=== PATIENT | female | born 1940 | race Asian ===

== ENCOUNTER 2020-03-04 17:53 | Inpatient (IN) | payer MEDICARE, OTHER ==
[~2020-03-04] VITALS: Ht 162.6 cm; Wt 53.1 kg
[2020-03-04 20:00] VITALS: BP 105/60
--- NOTE | 2020-03-04 20:00 | NUR ---
NURSE NOTES: Admitted patient to room 219-2 that was transferred from [facility]. Patient is a resident from [facility]. Patient is awake, alert and oriented x 0, non verbal. potline monitor is in placed, shows sinus tachycardia. Patient has a peg tube receiving nutrient pulmonary 1.5 formula @ 35 cc / hour x 20 hours in the nursing facility, but at the moment nothing is running, but RN checked placement and patency. Patient is connected to nasal cannula @ 3Lpm, saturating 99%. Patient has pressure ulcer on sacral region unsteagable and DTI of both heals. Safety measures are in placed. Bed in low and locked position, bed alarm is on, side rails up x 2. Will call Dr. Mcgowan for admission orders.
--- NOTE | 2020-03-04 20:50 | NUR ---
NURSE NOTES: Called Dr. Mcgowan and left a message to inform about the his new patient, awaiting for call back.
--- NOTE | 2020-03-04 21:20 | NUR ---
NURSE NOTES: Spoke with Dr. Latif, and gave vitals and assessment report. Dr. Latif says he will put the orders in for this patient. Will follow-up.
[2020-03-05] VITALS: BP 113/64
[2020-03-05 04:00] VITALS: BP 125/68
[2020-03-05] MEDS ORDERED: Guaifenesin/DM 10ml syrup ORAL PRN (07:15)
[2020-03-05] MEDS ORDERED: Acetaminophen 650mg/20.3ml GT PRN (07:15)
[2020-03-05 08:00] VITALS: BP 125/68
--- NOTE | 2020-03-05 10:00 | NUR ---
NURSE NOTES: PT HAS CONGESTION , SUCTIONED PT NASOTRACHEAL MODERATE OUTPUT WHITE SPUTUM, TOLERATED WELL, NO SOB. NO DISTRESS. GT HELD FOR NOW. HOB ELEVATED. WILL MONITOR. CALL LIGHT WITHIN REACH.
[2020-03-05] MEDS: Ascorbic Acid 500mg tab GT SCH (10:32)
[2020-03-05] MEDS: Magnesium Oxide 400mg tab ORAL SCH (10:32)
[2020-03-05 10:59] LABS: HEMATOCRIT 31.8 % (37.0-47.0); HEMOGLOBIN 11.1 G/DL (12.0-16.0); MEAN CORPUSCULAR VOLUME 89 FL (80-99); PLATELET COUNT 227 K/UL (150-450); RED BLOOD COUNT 3.56 M/UL (4.20-5.40); RED CELL DISTRIBUTION WIDTH 12.5 % (11.6-14.8); WHITE BLOOD COUNT 16.8 K/UL (4.8-10.8)
--- NOTE | 2020-03-05 11:18 | NUR ---
NURSE NOTES:WOUND CARE NOTES:Pt presented on admission with multiple pressure injuries. Non-Blanching erythema without fluctuance or elevation in skin temp noted to R and L elbows. Open DTPI noted to Sacrum,R and L gluteal cheeks(L)10cm x (W)11.4cm. Base of wound is maroon with multiple wounds that are viable.Small purple area that is indurated at sacrococcygeal area(L)2.1cm x (W)1cm.[place]lton epithelial borders that are adherent to base of wound. R and L heels are both boggy with non-blanching erythema. NOn-blanching erythema without induration or fluctuance noted to R and L lateral Malleoli. Tx.Plan: Cleanse wound Buttocks with Saline. Apply TheraHoney. Apply Moisture Barrier Paste periwound. Cover with Optifoam drsg. Change Daily and prn. Apply Cavilon Skin Barrier to both heels and Malleoli Both feet. Cover each area with Optifoam drsgs. Change every 7 days and prn. Apply Cavilon Skin Barrier to both elbows. Cover each elbow with Optifoam drsgs. Change every 7 days and prn. Apply Cavilon Skin Barrier to both hips/trochanteric areas.Cov er each area with Optifoam drsg. Change every 7 days and prn. Reposition at least every 2hours or as tolerated. Off-load heels with Pillow.
[2020-03-05 11:31] LABS: ALANINE AMINOTRANSFERASE 31 U/L (12-78); ALBUMIN 2.5 G/DL (3.4-5.0); ALBUMIN/GLOBULIN RATIO 0.6 (1.0-2.7); ALKALINE PHOSPHATASE 71 U/L (46-116); ANION GAP 9 mmol/L (5-15); ASPARTATE AMINO TRANSFERASE 22 U/L (15-37); BILIRUBIN,TOTAL 0.6 MG/DL (0.2-1.0); BLOOD UREA NITROGEN 10 mg/dL (7-18); CALCIUM 8.7 MG/DL (8.5-10.1); CARBON DIOXIDE 29 MMOL/L (21-32); CHLORIDE 113 MMOL/L (98-107); CREATININE 0.3 MG/DL (0.55-1.30); POTASSIUM 3.1 MMOL/L (3.5-5.1); SODIUM 150 MMOL/L (136-145)
[2020-03-05 12:00] VITALS: BP 148/68
[2020-03-05] MEDS ORDERED: Vancomycin 1gm/D5W 275ml IVPB ONE ×2 (13:00)
--- NOTE | 2020-03-05 13:00 | NUR ---
NURSE NOTES: PT AWAKE ALERT, NO SOB. SACRAL INTACT W SKIN DARK BROWN DISCOLORATION, ORTEGA PATENT AND INTACT W YELLOW URINE Addendum: 03/05/20 at 1340 by AVERY HERNANDEZ RN wrong patient
--- NOTE | 2020-03-05 13:10 | NUR ---
HAND-OFF: Report given to DUAEN ZAVALA.
[2020-03-05] MEDS: Zoysn 3.37gm in NS 100ML IVPB SCH ×2 (13:15→21:50)
[2020-03-05] MEDS: Heparin 5000 units/ml inj SUBQ SCH ×2 (13:15→21:54)
[2020-03-05] MEDS ORDERED: Zosyn 2.25gm inj IV SCH (14:00)
[2020-03-05 16:00] VITALS: BP 125/66
--- NOTE | 2020-03-05 16:59 | NUR ---
CASE MANAGEMENT: REVIEW 80 YEAR OLD FEMALE BIBA TO [facility] LATER TRANSFERRED TO [facility] CC: FEVER . SOB SI: PNA T 98.4 HR 98 RR 21 BP 105/60 SAT 99% ROOM AIR WBC 16.8 H/H 11.1/31.8 NA 150 K+ 3.1 IS: VANCOMYCIN IV X1 G-TUBE PATIENT ADMITTED TO TELEMETRY UNIT 03/04/2020 DCP: PATIENT IS FROM [facility]
--- NOTE | 2020-03-05 19:30 | NUR ---
NURSE NOTES: Received pt and report from SALLY Rg. Observed pt resting in bed with both eyes closed; arousable to voice. Pt is A/Ox0, nonverbal. court monitor is in placed; pt is NSR. IV site intact, asymptomatic, and patent; running D5W @50cc/hr. Pt has a Cornelius in placed for retention. Pt is on G-tube feeding of Jevity 1.2 @30cc/hr, continuous. Aspiration precaution noted; HOB at 30 degrees, suction at bedside. Bed is in the lowest position and locked. Call light and bedside table is within reach. No signs/symptoms of acute distress note at this time. Will continue plan of care.
[2020-03-05 20:00] VITALS: BP 108/59
--- NOTE | 2020-03-05 21:30 | History and Physical Report ---
DATE OF ADMISSION: 03/04/2020 CHIEF COMPLAINT: Aspiration pneumonia. HISTORY OF PRESENT ILLNESS: Patient is an unfortunate 80-year-old female. She has a prior history of aspiration pneumonia, dysphagia status post G-tube placement, hypertension. She has a history of progressive supranuclear palsy. She was transferred from a long term facility with complaints of cough and congestion. She has been congested for several days. She has been started on oral antibiotic therapy as well as breathing treatments, but her symptoms progressed. She was initially transferred to [facility]. There, she was diagnosed with aspiration pneumonia. She was initially on high-flow oxygen, but this was later weaned down and she is now transferred here for continued care. Patient is nonverbal at baseline. She does open her eyes, but does not really follow commands. PAST MEDICAL HISTORY: As above. PAST SURGICAL HISTORY: Includes a history of a G-tube. CURRENT MEDICATIONS: Reconciled and reviewed. FAMILY HISTORY: Noncontributory. SOCIAL HISTORY: There is no known history of tobacco, ethanol, or drugs. REVIEW OF SYSTEMS: Unobtainable as patient is nonverbal at baseline. PHYSICAL EXAMINATION: VITAL SIGNS: Temperature 99, pulse 84, respirations 21, blood pressure 125/68. GENERAL: Patient is a well-developed female, in no apparent distress. She is nonverbal at baseline. HEENT: Her pupils are equal, round, reactive to light. Sclerae are anicteric. Oropharynx is clear. Mucous members are moist. NECK: Supple. There is no jugular venous distention. HEART: Regular rate and rhythm. No murmurs, rubs, or gallops. LUNGS: Significant for scattered rhonchi and rales. ABDOMEN: Soft, nontender, nondistended. EXTREMITIES: Without clubbing, cyanosis, or edema. NEUROLOGIC: Patient is essentially quadriplegic. Does not follow commands. Patient opens her eyes. LABORATORY DATA: Sodium 150, potassium 3.1, chloride 113, BUN 10, creatinine 0.3. White count 17, hemoglobin 11. Chest x-ray at [place] showed pneumonia. ASSESSMENT: This is an unfortunate 80-year-old female with a history of dementia, progressive supranuclear palsy, dysphagia status post G-tube who was transferred from a long term facility with complaints of cough, congestion, and tachycardia. She was diagnosed with aspiration pneumonia and is now admitted for further evaluation. PROBLEM LIST: 1. Aspiration pneumonia. 2. SVT. 3. Hypertension. 4. Supranuclear palsy. 5. Dysphagia status post G-tube. 6. Hypernatremia. 7. Hypokalemia. 8. Toxic metabolic encephalopathy. PLAN: IV antibiotics. Followup chest x-ray. Follow up cultures. Hypotonic fluids. G-tube feeds. Monitor residuals. Replace potassium. Continue respiratory treatments and pulmonary toilet. Plan of care was discussed with patient's daughterKimberlee. Rick Mcgowan M.D. DR: RAMÓN JOB#: [id number] CC:
[2020-03-06] VITALS: BP 112/78
[2020-03-06 04:00] VITALS: BP 116/65
[2020-03-06] MEDS: Zoysn 3.37gm in NS 100ML IVPB SCH ×3 (05:29→22:00)
[2020-03-06] MEDS: Heparin 5000 units/ml inj SUBQ SCH ×3 (05:33→22:00)
[2020-03-06 07:00] LABS: BASOPHILS % (AUTO) 0.7 % (0.0-2.0); EOSINOPHILS % (AUTO) 0.9 % (0.0-3.0); HEMATOCRIT 31.1 % (37.0-47.0); HEMOGLOBIN 10.5 G/DL (12.0-16.0); MEAN CORPUSCULAR VOLUME 91 FL (80-99); MONOCYTES % (AUTO) 3.7 % (1.0-10.0); NEUTROPHILS % (AUTO) 82.7 % (45.0-75.0); PLATELET COUNT 218 K/UL (150-450); RED BLOOD COUNT 3.41 M/UL (4.20-5.40); RED CELL DISTRIBUTION WIDTH 12.4 % (11.6-14.8); WHITE BLOOD COUNT 11.1 K/UL (4.8-10.8)
[2020-03-06 07:27] LABS: ALANINE AMINOTRANSFERASE 22 U/L (12-78); ALBUMIN 2.3 G/DL (3.4-5.0); ALBUMIN/GLOBULIN RATIO 0.6 (1.0-2.7); ALKALINE PHOSPHATASE 71 U/L (46-116); ANION GAP 7 mmol/L (5-15); ASPARTATE AMINO TRANSFERASE 20 U/L (15-37); BILIRUBIN,TOTAL 0.4 MG/DL (0.2-1.0); BLOOD UREA NITROGEN 10 mg/dL (7-18); CALCIUM 8.8 MG/DL (8.5-10.1); CARBON DIOXIDE 28 MMOL/L (21-32); CHLORIDE 113 MMOL/L (98-107); CREATININE 0.4 MG/DL (0.55-1.30); POTASSIUM 3.5 MMOL/L (3.5-5.1); SODIUM 148 MMOL/L (136-145)
[2020-03-06] MEDS ORDERED: Albuterol/Ipratropium 3ml neb HHN PRN (07:30)
--- NOTE | 2020-03-06 07:45 | Progress Note ---
DATE: 03/05/2020 CARDIOLOGY PROGRESS NOTE SUBJECTIVE: The patient is poorly interactive, remains congested on IV fluids. PHYSICAL EXAMINATION: VITAL SIGNS: Blood pressure 125/66, pulse 63, respiratory rate 18, afebrile, oxygen saturation on 2 liters 99%. LUNGS: Bilateral breath sounds with rhonchi. HEART: Regular rate and rhythm. Normal S1, S2 with a fourth heart sound. ABDOMEN: Soft. G-tube intact. EXTREMITIES: No edema. LABORATORY AND DIAGNOSTIC DATA: White count 16.8, hemoglobin 11.1. Sodium 150, potassium 3.1, chloride 113, bicarb 29, BUN 10, creatinine 0.3. Albumin 2.5. IMPRESSION: 1. Aspiration pneumonia. 2. Acute respiratory insufficiency. 3. Paroxysmal sinus tachycardia. 4. Paroxysmal supraventricular tachyarrhythmia. 5. Hypokalemia. 6. Dehydration. 7. Hypernatremia. 8. Hypertensive heart disease. 9. Supranuclear palsy. 10. Toxic and metabolic encephalopathy. PLAN: 1. Hypotonic IV fluids. 2. Antimicrobials. 3. Respiratory hygiene. 4. Potassium replacement . 5. Check magnesium. 6. Trend natriuretic peptide assay. 7. DVT prophylaxis. 8. Nutrition by feeding tube. Justin Latif M.D. DR: Citlalli JOB#: [id number] CC:
--- NOTE | 2020-03-06 07:55 | NUR ---
NURSE NOTES: pt is awake and on Gtube feeding. assessed pt skin she has sacral wound st. 1 and slightly draining. Cleaned and applied barrier cream and optifoam to area. pt has optifoam on various parts of body for protection. Pt on awake overnight monitor no signs of cardiac or respiratory distress. Bed in lowest position and locked. call light within reach. will continue to monitor 920 reported blood culture to Dr[address] Patel
[2020-03-06 08:00] VITALS: BP 109/58
--- NOTE | 2020-03-06 08:18 | NUR ---
HAND-OFF: Report given to SALLY Dunlap. Plan of care endorsed.
--- NOTE | 2020-03-06 09:45 | Diagnostic Imaging Report ---
Indication: Cough Technique: One view of the chest Comparison: none Findings: Reticular interstitial disease and some dense consolidation is seen at the right lung base. There is dense consolidation in the retrocardiac region. The pleural spaces are clear. The heart size is normal. The aorta is calcified. The upper lungs are clear. A band of atelectasis versus thickening of the minor fissure is seen in the right midlung Impression: Bilateral infiltrates, likely pneumonia. Right midlung atelectasis
[2020-03-06] MEDS: Ascorbic Acid 500mg tab GT SCH (10:44)
[2020-03-06] MEDS: Magnesium Oxide 400mg tab ORAL SCH (10:44)
--- NOTE | 2020-03-06 11:16 | NUR ---
RD ASSESSMENT & RECOMMENDATIONS SEE CARE ACTIVITY FOR COMPLETE ASSESSMENT DAILY ESTIMATED NEEDS: Needs based on Wound, cardiac/ 47kg 25-30 kcals/kg 4581-1966 total kcals 1.25-1.5 g protein/kg 58-70 g total protein 25-30 mL/kg 3146-8931 total fluid mLs NUTRITION DIAGNOSIS: * Swallowing difficulty R/T dysphagia as evidenced by pt is PEG dep. * Increased kcal/prot needs R/T wound healing as evidenced by pt is PEG dep. CURRENT TF:Jevity 1.2 @ 30ml/hr x 24 hrs ENTERAL NUTRITION RECOMMENDATIONS: Jevity 1.2 @ 45ml/hr x 24 hrs to provide 1080ml, 1296kcal, 60g prot, 871ml free water * Increase goal rate to 45ml/hr x 24 hrs to meet 100% est kcal/prot needs * HOB over 30 degrees * Without IVF, water flush of 150ml q 8 hrs ADDITIONAL RECOMMENDATIONS: * Calibrated bedscale wt- w/ added P200 mattress + pump Per SNF: [id number] as of 03/04/20 * Monitor lytes, replete as needed * Wound healing: add Vit C 250mg QD + Kendell 1pkt BID * Monitor BGs w/ TF, need for NISS
--- NOTE | 2020-03-06 11:53 | General Progress Note ---
Assessment/Plan Problem List: (1) Bacteremia ICD Codes: R78.81 - Bacteremia SNOMED: 8825500 (2) Sepsis ICD Codes: A41.9 - Sepsis, unspecified organism SNOMED: 55026056 (3) SVT (supraventricular tachycardia) ICD Codes: I47.1 - Supraventricular tachycardia SNOMED: 4077440 (4) Progressive supranuclear palsy ICD Codes: G23.1 - Progressive supranuclear ophthalmoplegia [Brendan Puente] SNOMED: 250602580 (5) Pneumonia ICD Codes: J18.9 - Pneumonia, unspecified organism SNOMED: 841459579 Status: stable, progressing Assessment/Plan: iv abx follow up cultures gt feeds resp care suctioning monitor labs message left with dtr Subjective ROS Limited/Unobtainable: Yes Constitutional: Reports: malaise, weakness HEENT: Reports: no symptoms Cardiovascular: Reports: no symptoms Respiratory: Reports: cough, shortness of breath, sputum Gastrointestinal/Abdominal: Reports: difficulty swallowing Genitourinary: Reports: no symptoms Neurologic/Psychiatric: Reports: no symptoms Endocrine: Reports: no symptoms Hematologic/Lymphatic: Reports: anemia Allergies: Coded Allergies: NO KNOWN ALLERGIES (Verified Allergy, Unknown, 03/04/20) All Systems: reviewed and negative except above Subjective no events. nonverbal. mild congestion. +blood cultures from [place]. on tube feeds. remains withdrawn and poorly responsive. Objective Last 24 Hour Vital Signs Date Time Temp Pulse Resp B/P (MAP) Pulse Ox O2 Delivery O2 Flow Rate FiO2 03/06/20 08:00 98.4 81 20 109/58 (75) 100 03/06/20 04:00 85 03/06/20 04:00 98.0 85 17 116/65 (82) 98 03/06/20 00:00 94 03/06/20 00:00 97.8 86 19 112/78 (89) 99 03/05/20 21:00 Nasal Cannula 2.0 03/05/20 20:00 98.2 82 17 108/59 (75) 99 03/05/20 20:00 82 03/05/20 16:00 97.0 63 18 125/66 (85) 99 03/05/20 15:44 76 03/05/20 12:00 97.8 66 18 148/68 (94) 99 Intake and Output 03/05/20 03/06/20 19:00 07:00 Intake Total 450 ml Output Total 700 ml 500 ml Balance -250 ml -500 ml Intake Free Water 240 ml Tube Feeding 210 ml Output Urine Total 700 ml 500 ml # Voids 1 Laboratory Tests 03/06/20 06:17: White Blood Count 11.1H, Red Blood Count 3.41L, Hemoglobin 10.5L, Hematocrit 31.1L, Mean Corpuscular Volume 91, Mean Corpuscular Hemoglobin 30.8, Mean Corpuscular Hemoglobin Concent 33.8, Red Cell Distribution Width 12.4, Platelet Count 218, Mean Platelet Volume 6.1L, Neutrophils (%) (Auto) 82.7H, Lymphocytes (%) (Auto) 12.0L, Monocytes (%) (Auto) 3.7, Eosinophils (%) (Auto) 0.9, Basophils (%) (Auto) 0.7, Sodium Level 148H, Potassium Level 3.5, Chloride Level 113H, Carbon Dioxide Level 28, Anion Gap 7, Blood Urea Nitrogen 10, Creatinine 0.4L, Estimat Glomerular Filtration Rate > 60, Glucose Level 137H, Calcium Level 8.8, Magnesium Level 1.9, Total Bilirubin 0.4, Aspartate Amino Transf (AST/SGOT) 20, Alanine Aminotransferase (ALT/SGPT) 22, Alkaline Phosphatase 71, Pro-B-Type Natriuretic Peptide 477H, Total Protein 6.4, Albumin 2.3L, Globulin 4.1, Albumin/Globulin Ratio 0.6L Height (Feet): 5 Height (Inches): 4.00 Weight (Pounds): 117 General Appearance: WD/WN, lethargic, confused EENT: normal ENT inspection Neck: non-tender, normal alignment, supple Cardiovascular: normal peripheral pulses, normal rate Respiratory/Chest: chest wall non-tender, lungs clear, normal breath sounds Abdomen: normal bowel sounds, non tender, soft, no organomegaly Pelvis: normal external exam Edema: no edema noted Arm (L), no edema noted Arm (R), no edema noted Leg (L), no edema noted Leg (R), no edema noted Pedal (L), no edema noted Pedal (R), no edema noted Generalized Neurologic: disoriented, unresponsive, aphasia Rick Mcgowan MD March 06, 2020 11:53
[2020-03-06 12:00] VITALS: BP 134/68
[2020-03-06] MEDS: Vancomycin 500mg/D5W 110ml IVPB SCH ×2 (13:11)
--- NOTE | 2020-03-06 15:57 | Consultation ---
History of Present Illness General Date patient seen: March 06, 2020 Present Illness HPI This is a very unfortunate 80-year-old female multi-medical comorbidities and history of palsy who is a assisted resident care dependent presented to [facility] for evaluation of potential aspiration pneumonia. Abnormal labs. Significant leukocytosis, sepsis. Ill-appearing. Identified to have malnutrition BMI 20 low albumin multiple skin issues to DTI decubitus. Surgery called to evaluate and assist with care and management. Patient seen, patient evaluated, chart reviewed. Patient unable to provide meaningful history. Allergies: Coded Allergies: NO KNOWN ALLERGIES (Verified Allergy, Unknown, 03/04/20) Patient History Limited by: medical condition History Provided By: Medical Record, PMD Healthcare decision maker N Resuscitation status Advanced Directive on File Past Medical/Surgical History Past Medical/Surgical History: (1) Bacteremia (2) SVT (supraventricular tachycardia) (3) Sepsis (4) Pneumonia (5) Progressive supranuclear palsy Physical Exam General Appearance: no apparent distress, lethargic Lines, tubes and drains: peripheral HEENT: mucous membranes moist Neck: normal inspection Respiratory/Chest: no respiratory distress, no accessory muscle use, decreased breath sounds Cardiovascular/Chest: normal peripheral pulses, regularly irregular Abdomen: soft, no organomegaly, no mass, other Extremities: inflammation, slow capillary refill Skin Exam: warm/dry Neurologic: unresponsiveness Last 24 Hour Vital Signs Date Time Temp Pulse Resp B/P (MAP) Pulse Ox O2 Delivery O2 Flow Rate FiO2 03/06/20 08:00 98.4 81 20 109/58 (75) 100 03/06/20 04:00 85 03/06/20 04:00 98.0 85 17 116/65 (82) 98 03/06/20 00:00 94 03/06/20 00:00 97.8 86 19 112/78 (89) 99 03/05/20 21:00 Nasal Cannula 2.0 03/05/20 20:00 98.2 82 17 108/59 (75) 99 03/05/20 20:00 82 03/05/20 16:00 97.0 63 18 125/66 (85) 99 Intake and Output 03/05/20 03/06/20 19:00 07:00 Intake Total 450 ml Output Total 700 ml 500 ml Balance -250 ml -500 ml Intake Free Water 240 ml Tube Feeding 210 ml Output Urine Total 700 ml 500 ml # Voids 1 Laboratory Tests Test 03/06/20 06:17 White Blood Count 11.1 K/UL (4.8-10.8) H Red Blood Count 3.41 M/UL (4.20-5.40) L Hemoglobin 10.5 G/DL (12.0-16.0) L Hematocrit 31.1 % (37.0-47.0) L Mean Corpuscular Volume 91 FL (80-99) Mean Corpuscular Hemoglobin 30.8 PG (27.0-31.0) Mean Corpuscular Hemoglobin Concent 33.8 G/DL (32.0-36.0) Red Cell Distribution Width 12.4 % (11.6-14.8) Platelet Count 218 K/UL (150-450) Mean Platelet Volume 6.1 FL (6.5-10.1) L Neutrophils (%) (Auto) 82.7 % (45.0-75.0) H Lymphocytes (%) (Auto) 12.0 % (20.0-45.0) L Monocytes (%) (Auto) 3.7 % (1.0-10.0) Eosinophils (%) (Auto) 0.9 % (0.0-3.0) Basophils (%) (Auto) 0.7 % (0.0-2.0) Sodium Level 148 MMOL/L (136-145) H Potassium Level 3.5 MMOL/L (3.5-5.1) Chloride Level 113 MMOL/L (98-107) H Carbon Dioxide Level 28 MMOL/L (21-32) Anion Gap 7 mmol/L (5-15) Blood Urea Nitrogen 10 mg/dL (7-18) Creatinine 0.4 MG/DL (0.55-1.30) L Estimat Glomerular Filtration Rate > 60 mL/min (>60) Glucose Level 137 MG/DL (74-106) H Calcium Level 8.8 MG/DL (8.5-10.1) Magnesium Level 1.9 MG/DL (1.8-2.4) Total Bilirubin 0.4 MG/DL (0.2-1.0) Aspartate Amino Transf (AST/SGOT) 20 U/L (15-37) Alanine Aminotransferase (ALT/SGPT) 22 U/L (12-78) Alkaline Phosphatase 71 U/L (46-116) Pro-B-Type Natriuretic Peptide 477 pg/mL (0-125) H Total Protein 6.4 G/DL (6.4-8.2) Albumin 2.3 G/DL (3.4-5.0) L Globulin 4.1 g/dL Albumin/Globulin Ratio 0.6 (1.0-2.7) L Height (Feet): 5 Height (Inches): 4.00 Weight (Pounds): 117 Medications Current Medications Medications (Trade) Dose Ordered Sig/Monik Route PRN Reason Start Time Stop Time Status Last Admin Dose Admin Acetaminophen (Tylenol) 650 mg Q4H PRN GT Mild Pain (Pain Scale 1-3) 03/05/20 07:15 04/04/20 07:14 Albuterol/ Ipratropium (Albuterol/ Ipratropium) 3 ml Q4H PRN HHN Shortness of Breath 03/06/20 07:30 03/11/20 07:29 Ascorbic Acid (Vitamin C) 500 mg DAILY GT 03/05/20 09:00 04/04/20 08:59 03/06/20 10:44 Dextrose 1,000 ml @ 50 mls/hr Q20H IV 03/05/20 15:45 04/04/20 15:44 03/05/20 17:05 Guaifenesin/ Dextromethorphan (Robitussin DM Syrup) 5 ml Q4H PRN ORAL CONGESTION 03/05/20 07:15 06/03/20 07:14 Heparin Sodium (Porcine) (Heparin 5000 units/ml) 5,000 units EVERY 8 HOURS SUBQ 03/05/20 14:00 04/19/20 13:59 03/06/20 13:15 Magnesium Oxide (Mag-Ox 400mg) 200 mg DAILY ORAL 03/05/20 09:00 04/04/20 08:59 03/06/20 10:44 Piperacillin Sod/ Tazobactam Sod 3.375 gm/Sodium Chloride 110 ml @ 27.5 mls/hr EVERY 8 HOURS IVPB 03/05/20 14:00 03/10/20 13:59 03/06/20 15:07 Vancomycin HCl (Vanco rx to dose) 1 ea DAILY PRN MISC Per rx protocol 03/05/20 07:15 04/04/20 07:14 Vancomycin HCl 500 mg/Dextrose 110 ml @ 110 mls/hr Q24H IVPB 03/06/20 13:00 03/11/20 12:59 03/06/20 13:11 Assessment/Plan Problem List: (1) Bacteremia ICD Codes: R78.81 - Bacteremia SNOMED: 2365640 (2) SVT (supraventricular tachycardia) ICD Codes: I47.1 - Supraventricular tachycardia SNOMED: 8965892 (3) Sepsis Assessment & Plan: afebrile, HD stable leukocytosis pna cxr noted large DTI sacrum micro noted UA noted cont abx as per ID trend labs no acute surgical intervention planned ICD Codes: A41.9 - Sepsis, unspecified organism SNOMED: 37374650 (4) Pneumonia Assessment & Plan: Reticular interstitial disease and some dense consolidation is seen at the right lung base. There is dense consolidation in the retrocardiac region. The pleural spaces are clear. The heart size is normal. The aorta is calcified. The upper lungs are clear. A band of atelectasis versus thickening of the minor fissure is seen in the right midlung Impression: Bilateral infiltrates, likely pneumonia. Right midlung atelectasis ICD Codes: J18.9 - Pneumonia, unspecified organism SNOMED: 854502342 (5) Progressive supranuclear palsy ICD Codes: G23.1 - Progressive supranuclear ophthalmoplegia [Efrain-Corona- Cindi] SNOMED: 357854510 (6) Malnutrition Assessment & Plan: DAILY ESTIMATED NEEDS: Needs based on Wound, cardiac/ 47kg 25-30 kcals/kg 1401-1000 total kcals 1.25-1.5 g protein/kg 58-70 g total protein 25-30 mL/kg 2196-7781 total fluid mLs NUTRITION DIAGNOSIS: * Swallowing difficulty R/T dysphagia as evidenced by pt is PEG dep. * Increased kcal/prot needs R/T wound healing as evidenced by pt is PEG dep. CURRENT TF:Jevity 1.2 @ 30ml/hr x 24 hrs ENTERAL NUTRITION RECOMMENDATIONS: Jevity 1.2 @ 45ml/hr x 24 hrs to provide 1080ml, 1296kcal, 60g prot, 871ml free water * Increase goal rate to 45ml/hr x 24 hrs to meet 100% est kcal/prot needs * HOB over 30 degrees * Without IVF, water flush of 150ml q 8 hrs ADDITIONAL RECOMMENDATIONS: * Calibrated bedscale wt- w/ added P200 mattress + pump Per SNF: [id number] as of 03/04/20 * Monitor lytes, replete as needed * Wound healing: add Vit C 250mg QD + Kendell 1pkt BID * Monitor BGs w/ TF, need for NISS ICD Codes: E46 - Unspecified protein-calorie malnutrition SNOMED: 04591628 (7) Deep tissue injury Assessment & Plan: patient noted to have large DTI sacrum on admission, erythema, no drainage, no foul odor, developing deep tissue injury with high risk of breakdown worsening given patients overall condition. noted areas of epidermal skin loss in the superior right and lower left. measurements noted in chart. no signs of active infection Tx Plan: Apply skin protectant to sacral area and buttock, cover with optifoam dressing q3 days and prn saturation off load heels with pillow heel protectors monitor for incontinence and care accordingly turn q2h air loss mattress nutritional optimization will follow with recs thank you ICD Codes: T14.8XXA - Other injury of unspecified body region, initial encounter SNOMED: 370158142 Josh Duff March 06, 2020 15:57
[2020-03-06 16:00] VITALS: BP 120/65
--- NOTE | 2020-03-06 17:59 | Consultation ---
DATE OF CONSULTATION: 03/06/2020 INFECTIOUS DISEASES CONSULTATION CONSULTING PHYSICIAN: Jillian Joaquin MD. REFERRING PHYSICIAN: Rick Mcgowan MD. REASON FOR CONSULTATION: Bacteremia. HISTORY OF PRESENTING ILLNESS: This is a 80-year-old lady with history of aspiration pneumonia, status post G-tube placement, hypertension, supranuclear palsy, who is transferred [place] [facility] facility with cough and congestion. She was in [facility]. She was found to have Staph sepsis and an Infectious Diseases consultation now has been obtained for antibiotics. PAST MEDICAL HISTORY: 1. History of aspiration pneumonia. 2. Dysphagia, status post G-tube placement. 3. Hypertension. 4. Progressive supranuclear palsy. SOCIAL HISTORY: No history of smoking, alcohol, or drug use. FAMILY HISTORY: Unknown. REVIEW OF SYSTEMS: Unable to obtain currently. MEDICATIONS: As an inpatient, she is on IV vancomycin, subcu heparin, Zosyn, magnesium oxide, ascorbic acid, Robitussin, and Tylenol. ALLERGIES: No known drug allergies. PHYSICAL EXAMINATION: VITAL SIGNS: Temperature of 98, T-max of 99.1, pulse of 85, respiratory rate 17, blood pressure 116/65, O2 saturation of 98%. GENERAL: Examination deferred due to COVID-19. LABORATORY AND DIAGNOSTIC DATA: White count 16.8 on 03/05/2020. On 03/06/2020, white count 11.1, hemoglobin 10.5, hematocrit 31.1, MCV 91, platelet count of 218,000; neutrophils of 82%. Sodium 148, potassium 3.5, chloride 113, bicarb 28, BUN 10, creatinine 0.4, glucose 137, calcium 8.8. Total bilirubin 0.4, AST 20, ALT 22, alkaline phosphatase 71, total protein 6.4, albumin 2.3. Chest x-ray is showing bilateral infiltrates likely pneumonia, right mid lung atelectasis. ASSESSMENT: This is a 80-year-old lady with history of hypertension, dysphagia status post G-tube placement, supranuclear palsy, who comes in with cough and congestion and is found to have: 1. Likely aspiration pneumonia. Would like to rule out COVID-19 pneumonia as a possibility. 2. Positive blood cultures with Staph species. 3. Hypertension. 4. Status post G-tube placement. PLAN: 1. Continue IV vancomycin and Zosyn. 2. We will order COVID-19 testing[address] will [address] the patient in isolation. 4. We will order sputum for Gram stain and culture. 5. We will follow up cultures and adjust antibiotics accordingly. I would like to thank, Dr. Mcgowan, for this consultation. Zaiduntsudhakar Joaquin M.D. DR: Nik JOB#: [id number] CC: Rick Mcgowan M.D.
--- NOTE | 2020-03-06 19:35 | NUR ---
HAND-OFF: Report given to Davis/rn, pt in stable condition.
--- NOTE | 2020-03-06 19:40 | NUR ---
NURSE NOTES: Got report from Fabi ZAVALA. Pt in stable condition. No s/s of distress or discomfort noted. Pt resting in bed comfortably. Bed in low and locked position, call light within reach, bedside table within reach. Continue to monitor.
[2020-03-06 20:00] VITALS: BP 130/68
[2020-03-07] VITALS: BP 133/78
--- NOTE | 2020-03-07 00:45 | Progress Note ---
DATE: 03/06/2020 CARDIOLOGY PROGRESS NOTE SUBJECTIVE: The patient is nonverbal at baseline. Appears to have some mild congestion. She has positive blood cultures. She remains on tube feedings. Monitored rhythm, sinus and occasional atrial ectopics. PHYSICAL EXAMINATION: VITAL SIGNS: Blood pressure 109/58, pulse 81, respiratory rate 20, oxygen saturation on 2 liters 99%. LUNGS: Bilateral breath sounds. Rhonchi. HEART: Regular rhythm and rate. Normal S1, S2 with a 1/6 systolic murmur at apex. ABDOMEN: Soft and nontender. G-tube site intact. EXTREMITIES: Trace edema. LABORATORY DATA: White count 11.1, hemoglobin 10.5. Sodium 148, potassium 3.5, bicarb 28, BUN 10, creatinine 0.4. Pro-natriuretic peptide 477. Magnesium 1.9. Albumin 2.3. Chest x-ray today revealed bilateral interstitial infiltrates. IMPRESSION: 1. Sepsis. 2. Bacteremia. 3. Dehydration. 4. Hypernatremia. 5. 6. Aspiration healthcare-acquired pneumonia. 7. Acute on chronic diastolic congestive heart failure. 8. Supraventricular arrhythmias. 9. Paroxysmal sinus tachycardia. 10. Severe protein-calorie malnutrition. 11. Increased risk for endocarditis IMPRESSION: 1. Antimicrobials. 2. Respiratory hygiene. 3. Bronchodilators. 4. Hypotonic IV fluid hydration. 5. DVT prophylaxis. 6. Nutrition by feeding tube. 7. Cardiac monitoring. 8. Trend natriuretic peptide assay. 9. Await cultures. 10. May need to consider further workup for endocarditis. Justin Latif M.D. DR: Citlalli JOB#: [id number] CC:
--- NOTE | 2020-03-07 01:59 | Consultation ---
DATE OF CONSULTATION: 03/04/2020 CARDIOLOGY CONSULTATION CONSULTING PHYSICIAN: Justin Latif MD. REQUESTING PHYSICIAN: Rick Mcgowan MD. REASON FOR CONSULTATION: Tachycardia and arrhythmias. HISTORY OF PRESENT ILLNESS: This is a 80-year-old female. She has a history of progressive supranuclear palsy. She is poorly interactive at baseline with dysphagia and a G-tube. She had some cough, congestion, and respiratory distress and was transferred to the closest emergency room where she was diagnosed with an aspiration pneumonia. She was noted to have tachycardia, supraventricular tachycardia as well. The patient was stabilized and transferred here for continuation of care. PAST MEDICAL HISTORY: Includes supranuclear palsy, dysphagia, G-tube. ALLERGIES: None. MEDICATIONS: Reviewed. FAMILY HISTORY: Not known. SOCIAL HISTORY: No record of smoking, alcohol, or substance abuse. REVIEW OF SYSTEMS: Not obtainable. Records from [facility] were reviewed in detail. PHYSICAL EXAMINATION: IMPRESSION: 1. Aspiration pneumonia. 2. Acute respiratory insufficiency. 3. Acute myocardial ischemia. 4. Dehydration. 5. Hypernatremia. 6. Severe protein-calorie malnutrition. 7. Dysphagia. 8. Paroxysmal supraventricular tachyarrhythmias. 9. Secondary sinus tachycardia. 10. Leukocytosis. PLAN: 1. Antimicrobials. 2. Respiratory hygiene. 3. DVT prophylaxis. 4. Hypotonic IV fluids. 5. Cardiac monitoring. 6. No role for antiarrhythmics presently. 7. Check electrolytes. Justin Latif M.D. : Ranjan JOB#: [id number] CC:
[2020-03-07 04:20] VITALS: BP 130/82
[2020-03-07] MEDS: Zoysn 3.37gm in NS 100ML IVPB SCH ×3 (06:06→21:33)
[2020-03-07] MEDS: Heparin 5000 units/ml inj SUBQ SCH ×3 (06:07→21:35)
--- NOTE | 2020-03-07 07:15 | NUR ---
HAND-OFF: Report given to Fabi ZAVALA.
[2020-03-07 08:00] VITALS: BP 136/73
--- NOTE | 2020-03-07 08:20 | NUR ---
NURSE NOTES: pt in stable condition. platform supervisor on, no signs of cardiac or respiratory distress at this time. pt on Gtube feeding. Bed locked and in lowest position. Call light within reach. Will continue to monitor pt.
[2020-03-07] MEDS: Ascorbic Acid 500mg tab GT SCH (09:04)
[2020-03-07] MEDS: Magnesium Oxide 400mg tab ORAL SCH (09:05)
--- NOTE | 2020-03-07 10:23 | Infectious Diseases Prog Note ---
Assessment/Plan Assessment/Plan antibiotics : vancomycin, zosyn A 1. Likely aspiration pneumonia. Would like to rule out COVID-19 pneumonia as a possibility. 2. Positive blood cultures with Staph species. 3. Hypertension. 4. Status post G-tube placement. 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 Continue IV vancomycin and Zosyn. 2. COVID-19 testing pending 3. continue isolation. 4. will follow up cultures Subjective ROS Limited/Unobtainable: Yes Allergies: Coded Allergies: NO KNOWN ALLERGIES (Verified Allergy, Unknown, 03/04/20) Objective Vital Signs Last 24 Hour Vital Signs Date Time Temp Pulse Resp B/P (MAP) Pulse Ox O2 Delivery O2 Flow Rate FiO2 03/07/20 08:00 97.7 95 18 136/73 (94) 95 03/07/20 04:20 97.7 71 18 130/82 (98) 97 03/07/20 04:00 95 03/07/20 00:00 87 03/07/20 00:00 98.2 74 18 133/78 (96) 96 03/06/20 21:00 Nasal Cannula 2.0 03/06/20 20:00 83 03/06/20 20:00 97.7 80 18 130/68 (88) 95 03/06/20 16:00 98.2 87 20 120/65 (83) 100 03/06/20 16:00 84 03/06/20 12:00 98.1 83 20 134/68 (90) 100 03/06/20 12:00 74 Height (Feet): 5 Height (Inches): 4.00 Weight (Pounds): 117 Microbiology Date/Time Source Procedure Growth Status 03/04/20 22:00 Nasal Nares Left MRSA Culture - Final Staphylococcus Aureus - Mrsa Complete 03/04/20 22:00 Rectum - Final NO CARBAPENEM-RESISTANT ENTEROBACTERI... Complete 03/04/20 22:00 Rectum VRE Culture - Final Enterococcus Faecalis - Vre Complete Current Medications Medications (Trade) Dose Ordered Sig/Monik Route PRN Reason Start Time Stop Time Status Last Admin Dose Admin Acetaminophen (Tylenol) 650 mg Q4H PRN GT Mild Pain (Pain Scale 1-3) 03/05/20 07:15 04/04/20 07:14 Albuterol/ Ipratropium (Albuterol/ Ipratropium) 3 ml Q4H PRN HHN Shortness of Breath 03/06/20 07:30 03/11/20 07:29 Ascorbic Acid (Vitamin C) 250 mg DAILY GT 03/07/20 09:00 04/06/20 08:59 03/07/20 09:04 Dextrose 1,000 ml @ 50 mls/hr Q20H IV 03/05/20 15:45 04/04/20 15:44 03/05/20 17:05 Guaifenesin/ Dextromethorphan (Robitussin DM Syrup) 5 ml Q4H PRN ORAL CONGESTION 03/05/20 07:15 06/03/20 07:14 Heparin Sodium (Porcine) (Heparin 5000 units/ml) 5,000 units EVERY 8 HOURS SUBQ 03/05/20 14:00 04/19/20 13:59 03/07/20 06:07 Magnesium Oxide (Mag-Ox 400mg) 200 mg DAILY ORAL 03/05/20 09:00 04/04/20 08:59 03/07/20 09:05 Piperacillin Sod/ Tazobactam Sod 3.375 gm/Sodium Chloride 110 ml @ 27.5 mls/hr EVERY 8 HOURS IVPB 03/05/20 14:00 03/10/20 13:59 03/07/20 06:06 Vancomycin HCl (Vanco rx to dose) 1 ea DAILY PRN MISC Per rx protocol 03/05/20 07:15 04/04/20 07:14 Vancomycin HCl 500 mg/Dextrose 110 ml @ 110 mls/hr Q24H IVPB 03/06/20 13:00 03/11/20 12:59 03/06/20 13:11 Jillian Joaquin MD March 07, 2020 10:23
[2020-03-07 11:27] LABS: BASOPHILS % (AUTO) 0.7 % (0.0-2.0); EOSINOPHILS % (AUTO) 0.8 % (0.0-3.0); HEMATOCRIT 32.6 % (37.0-47.0); HEMOGLOBIN 10.8 G/DL (12.0-16.0); LYMPHOCYTES % (AUTO) 14.8 % (20.0-45.0); MEAN CORPUSCULAR VOLUME 90 FL (80-99); MONOCYTES % (AUTO) 4.6 % (1.0-10.0); NEUTROPHILS % (AUTO) 79.1 % (45.0-75.0); PLATELET COUNT 246 K/UL (150-450); RED BLOOD COUNT 3.61 M/UL (4.20-5.40); RED CELL DISTRIBUTION WIDTH 12.3 % (11.6-14.8)
[2020-03-07 11:58] LABS: ALANINE AMINOTRANSFERASE 22 U/L (12-78); ALBUMIN 2.4 G/DL (3.4-5.0); ALBUMIN/GLOBULIN RATIO 0.6 (1.0-2.7); ALKALINE PHOSPHATASE 79 U/L (46-116); ANION GAP 9 mmol/L (5-15); ASPARTATE AMINO TRANSFERASE 17 U/L (15-37); BILIRUBIN,TOTAL 0.5 MG/DL (0.2-1.0); BLOOD UREA NITROGEN 6 mg/dL (7-18); CALCIUM 8.5 MG/DL (8.5-10.1); CARBON DIOXIDE 27 MMOL/L (21-32); CHLORIDE 109 MMOL/L (98-107); CREATININE 0.3 MG/DL (0.55-1.30); POTASSIUM 2.9 MMOL/L (3.5-5.1); SODIUM 145 MMOL/L (136-145)
[2020-03-07 12:00] VITALS: BP 135/72
--- NOTE | 2020-03-07 12:04 | General Progress Note ---
Assessment/Plan Problem List: (1) Bacteremia ICD Codes: R78.81 - Bacteremia SNOMED: 8724571 (2) Sepsis ICD Codes: A41.9 - Sepsis, unspecified organism SNOMED: 55777592 (3) SVT (supraventricular tachycardia) ICD Codes: I47.1 - Supraventricular tachycardia SNOMED: 8066115 (4) Progressive supranuclear palsy ICD Codes: G23.1 - Progressive supranuclear ophthalmoplegia [Brendan Puente] SNOMED: 575321415 (5) Pneumonia ICD Codes: J18.9 - Pneumonia, unspecified organism SNOMED: 991324435 Status: stable, progressing Assessment/Plan: iv abx follow up cultures- +from [facility] gt feeds resp care suctioning as needed monitor labs poc d/w dtr cesar x 10 min dc planning tomorrow to snf on iv abx Subjective ROS Limited/Unobtainable: Yes Constitutional: Reports: malaise, weakness HEENT: Reports: no symptoms Cardiovascular: Reports: no symptoms Respiratory: Reports: cough Gastrointestinal/Abdominal: Reports: no symptoms Genitourinary: Reports: no symptoms Neurologic/Psychiatric: Reports: pre-existing deficit Endocrine: Reports: no symptoms Allergies: Coded Allergies: NO KNOWN ALLERGIES (Verified Allergy, Unknown, 03/04/20) All Systems: reviewed and negative except above Subjective no events. nonverbal. mild congestion. +blood cultures from [facility]. on tube feeds. remains withdrawn and poorly responsive. Objective Last 24 Hour Vital Signs Date Time Temp Pulse Resp B/P (MAP) Pulse Ox O2 Delivery O2 Flow Rate FiO2 03/07/20 09:00 Nasal Cannula 2.0 03/07/20 08:00 97.7 95 18 136/73 (94) 95 03/07/20 04:20 97.7 71 18 130/82 (98) 97 03/07/20 04:00 95 03/07/20 00:00 87 03/07/20 00:00 98.2 74 18 133/78 (96) 96 03/06/20 21:00 Nasal Cannula 2.0 03/06/20 20:00 83 03/06/20 20:00 97.7 80 18 130/68 (88) 95 03/06/20 16:00 98.2 87 20 120/65 (83) 100 5/5/20 16:00 84 03/06/20 12:00 98.1 83 20 134/68 (90) 100 03/06/20 12:00 74 Intake and Output 03/06/20 03/07/20 19:00 07:00 Output Total 200 ml 1200 ml Balance -200 ml -1200 ml Output Urine Total 200 ml 1200 ml # Voids 1 Laboratory Tests 03/07/20 10:40: White Blood Count 9.0, Red Blood Count 3.61L, Hemoglobin 10.8L, Hematocrit 32.6L , Mean Corpuscular Volume 90, Mean Corpuscular Hemoglobin 29.9, Mean Corpuscular Hemoglobin Concent 33.1, Red Cell Distribution Width 12.3, Platelet Count 246, Mean Platelet Volume 6.0L, Neutrophils (%) (Auto) 79.1H, Lymphocytes (%) (Auto) 14.8L, Monocytes (%) (Auto) 4.6, Eosinophils (%) (Auto) 0.8, Basophils (%) (Auto) 0.7, Sodium Level [Pending], Potassium Level [Pending], Chloride Level [Pending], Carbon Dioxide Level [Pending], Blood Urea Nitrogen [ Pending], Creatinine [Pending], Estimat Glomerular Filtration Rate [Pending], Glucose Level [Pending], Calcium Level [Pending], Total Bilirubin [Pending], Aspartate Amino Transf (AST/SGOT) [Pending], Alanine Aminotransferase (ALT/SGPT ) [Pending], Alkaline Phosphatase [Pending], Total Protein [Pending], Albumin [ Pending], Globulin [Pending] Height (Feet): 5 Height (Inches): 4.00 Weight (Pounds): 117 General Appearance: WD/WN, confused EENT: normal ENT inspection Neck: non-tender, normal alignment, supple Cardiovascular: normal peripheral pulses, normal rate, regular rhythm Respiratory/Chest: chest wall non-tender, lungs clear, normal breath sounds, no respiratory distress, no accessory muscle use Abdomen: normal bowel sounds, non tender, soft, no organomegaly, no mass Edema: no edema noted Arm (L), no edema noted Arm (R), no edema noted Leg (L), no edema noted Leg (R), no edema noted Pedal (L), no edema noted Pedal (R), no edema noted Generalized Neurologic: disoriented, unresponsive Skin: normal pigmentation Rick Mcgowan MD March 07, 2020 12:04
--- NOTE | 2020-03-07 14:54 | Surgery Progress Note ---
Surgery Progress Note Subjective Additional Comments no acute events comfortable stable labs noted micro reviewed Objective Last 24 Hour Vital Signs Date Time Temp Pulse Resp B/P (MAP) Pulse Ox O2 Delivery O2 Flow Rate FiO2 03/07/20 09:00 Nasal Cannula 2.0 03/07/20 08:00 97.7 95 18 136/73 (94) 95 03/07/20 04:20 97.7 71 18 130/82 (98) 97 03/07/20 04:00 95 03/07/20 00:00 87 03/07/20 00:00 98.2 74 18 133/78 (96) 96 03/06/20 21:00 Nasal Cannula 2.0 03/06/20 20:00 83 03/06/20 20:00 97.7 80 18 130/68 (88) 95 03/06/20 16:00 98.2 87 20 120/65 (83) 100 03/06/20 16:00 84 I&O Intake and Output 03/06/20 03/07/20 19:00 07:00 Output Total 200 ml 1200 ml Balance -200 ml -1200 ml Output Urine Total 200 ml 1200 ml # Voids 1 Dressing: other Wound: other Cardiovascular: RSR Respiratory: decreased breath sounds Abdomen: soft, non-tender, present bowel sounds Extremities: no cyanosis Laboratory Tests Test 03/07/20 10:40 White Blood Count 9.0 K/UL (4.8-10.8) Red Blood Count 3.61 M/UL (4.20-5.40) L Hemoglobin 10.8 G/DL (12.0-16.0) L Hematocrit 32.6 % (37.0-47.0) L Mean Corpuscular Volume 90 FL (80-99) Mean Corpuscular Hemoglobin 29.9 PG (27.0-31.0) Mean Corpuscular Hemoglobin Concent 33.1 G/DL (32.0-36.0) Red Cell Distribution Width 12.3 % (11.6-14.8) Platelet Count 246 K/UL (150-450) Mean Platelet Volume 6.0 FL (6.5-10.1) L Neutrophils (%) (Auto) 79.1 % (45.0-75.0) H Lymphocytes (%) (Auto) 14.8 % (20.0-45.0) L Monocytes (%) (Auto) 4.6 % (1.0-10.0) Eosinophils (%) (Auto) 0.8 % (0.0-3.0) Basophils (%) (Auto) 0.7 % (0.0-2.0) Sodium Level 145 MMOL/L (136-145) Potassium Level 2.9 MMOL/L (3.5-5.1) L Chloride Level 109 MMOL/L (98-107) H Carbon Dioxide Level 27 MMOL/L (21-32) Anion Gap 9 mmol/L (5-15) Blood Urea Nitrogen 6 mg/dL (7-18) L Creatinine 0.3 MG/DL (0.55-1.30) L Estimat Glomerular Filtration Rate > 60 mL/min (>60) Glucose Level 131 MG/DL (74-106) H Calcium Level 8.5 MG/DL (8.5-10.1) Total Bilirubin 0.5 MG/DL (0.2-1.0) Aspartate Amino Transf (AST/SGOT) 17 U/L (15-37) Alanine Aminotransferase (ALT/SGPT) 22 U/L (12-78) Alkaline Phosphatase 79 U/L (46-116) Total Protein 6.4 G/DL (6.4-8.2) Albumin 2.4 G/DL (3.4-5.0) L Globulin 4.0 g/dL Albumin/Globulin Ratio 0.6 (1.0-2.7) L Plan Problems: (1) Bacteremia (2) SVT (supraventricular tachycardia) (3) Sepsis Assessment & Plan: afebrile, HD stable leukocytosis pna cxr noted large DTI sacrum micro noted UA noted cont abx as per ID trend labs no acute surgical intervention planned (4) Pneumonia Assessment & Plan: Reticular interstitial disease and some dense consolidation is seen at the right lung base. There is dense consolidation in the retrocardiac region. The pleural spaces are clear. The heart size is normal. The aorta is calcified. The upper lungs are clear. A band of atelectasis versus thickening of the minor fissure is seen in the right midlung Impression: Bilateral infiltrates, likely pneumonia. Right midlung atelectasis (5) Progressive supranuclear palsy (6) Malnutrition Assessment & Plan: DAILY ESTIMATED NEEDS: Needs based on Wound, cardiac/ 47kg 25-30 kcals/kg 8407-0116 total kcals 1.25-1.5 g protein/kg 58-70 g total protein 25-30 mL/kg 3383-3704 total fluid mLs NUTRITION DIAGNOSIS: * Swallowing difficulty R/T dysphagia as evidenced by pt is PEG dep. * Increased kcal/prot needs R/T wound healing as evidenced by pt is PEG dep. CURRENT TF:Jevity 1.2 @ 30ml/hr x 24 hrs ENTERAL NUTRITION RECOMMENDATIONS: Jevity 1.2 @ 45ml/hr x 24 hrs to provide 1080ml, 1296kcal, 60g prot, 871ml free water * Increase goal rate to 45ml/hr x 24 hrs to meet 100% est kcal/prot needs * HOB over 30 degrees * Without IVF, water flush of 150ml q 8 hrs ADDITIONAL RECOMMENDATIONS: * Calibrated bedscale wt- w/ added P200 mattress + pump Per SNF: [id number] as of 03/04/20 * Monitor lytes, replete as needed * Wound healing: add Vit C 250mg QD + Kendell 1pkt BID * Monitor BGs w/ TF, need for NISS (7) Deep tissue injury Assessment & Plan: patient noted to have large DTI sacrum on admission, erythema, no drainage, no foul odor, developing deep tissue injury with high risk of breakdown worsening given patients overall condition. noted areas of epidermal skin loss in the superior right and lower left. measurements noted in chart. no signs of active infection Tx Plan: Apply skin protectant to sacral area and buttock, cover with optifoam dressing q3 days and prn saturation off load heels with pillow heel protectors monitor for incontinence and care accordingly turn q2h air loss mattress nutritional optimization will follow with recs thank you Josh Duff March 07, 2020 14:54
--- NOTE | 2020-03-07 14:58 | NUR ---
CASE MANAGEMENT:REVIEW 03/07/20 SI: SEPSIS. PNA.BACTEREMIA. SVT SUSPECTED COVID 19 97.7 95 18 136/73 95% ON 2L/NC H/H-10.8/32.6 K-2.9 IS: IV VANCOMYCIN Q24 IV ZOSYN Q8HRS IVF@50/HR HEPARIN SQ Q8HRS MAG OXIDE PO QD : TELEMETRY STATUS DCP: [facility]
[2020-03-07] MEDS: Vancomycin 500mg/D5W 110ml IVPB SCH ×2 (15:05)
[2020-03-07 16:00] VITALS: BP 130/72
--- NOTE | 2020-03-07 19:34 | NUR ---
HAND-OFF: Report given to Porfirio/RN, pt in stable condition endorsed plan of care.
[2020-03-07 20:00] VITALS: BP 100/61
[2020-03-08] VITALS: BP 103/62
[2020-03-08 04:00] VITALS: BP 109/66
--- NOTE | 2020-03-08 04:15 | Progress Note ---
DATE: 03/07/2020 CARDIOLOGY PROGRESS NOTE SUBJECTIVE: Patient remains on IV antimicrobials. Positive blood cultures were noted. Prior to arrival here from [place] [facility] emergency room, the patient is on respiratory hygiene and NG-tube nutrition. She remains withdrawn and poorly responsive. PHYSICAL EXAMINATION: VITAL SIGNS: Oxygen saturation on 2 L 95%, blood pressure 136/73, heart rate 71 to 95 and regular, afebrile. LUNGS: Bilateral breath sounds with rhonchi. CARDIAC: Regular rhythm and rate. Normal S1, S2 with a 1/6 systolic murmur at base. ABDOMEN: Soft. EXTREMITIES: No edema. LABORATORY DATA: White count 9, hemoglobin 10.8. Sodium 145, potassium 2.9, bicarb 27, BUN 6, creatinine 0.3. Albumin 2.4. IMPRESSION: 1. Aspiration pneumonia. 2. Rule out COVID-19. 3. Staph bacteremia. 4. Increased risk for endocarditis in the setting of degenerative valve disease and comorbidities. 5. Hypertensive heart disease. 6. Diastolic dysfunction with chronic congestive heart failure. 7. Hypokalemia. 8. Dehydration and hypernatremia. 9. Severe protein-calorie malnutrition. PLAN: 1. Potassium replacement. 2. Hypotonic fluid hydration. 3. Antimicrobials. 4. Echocardiogram to evaluate for possible endocarditis. 5. Nutritional support with protein supplement by feeding tube. 6. DVT prophylaxis. Justin Latif M.D. DR: CONG JOB#: [id number] CC:
[2020-03-08] MEDS: Zoysn 3.37gm in NS 100ML IVPB SCH ×3 (05:53→22:04)
[2020-03-08] MEDS: Heparin 5000 units/ml inj SUBQ SCH ×3 (05:54→22:04)
--- NOTE | 2020-03-08 07:45 | NUR ---
HAND-OFF: Report given to Stacy ZAVALA.
--- NOTE | 2020-03-08 07:46 | NUR ---
NURSE NOTES: Received patient in bed awake. NO SOB or acute distress. IV lines intact and patent. FC intact. Noted with a lot of oral secretions, suctioned periodically. HOB elevated. Bed locked in lowest position. Call light within reach. Will continue plan of care.
[2020-03-08 07:49] LABS: HEMATOCRIT 34.5 % (37.0-47.0); HEMOGLOBIN 11.5 G/DL (12.0-16.0); MEAN CORPUSCULAR VOLUME 93 FL (80-99); PLATELET COUNT 324 K/UL (150-450); RED BLOOD COUNT 3.73 M/UL (4.20-5.40); RED CELL DISTRIBUTION WIDTH 12.5 % (11.6-14.8); WHITE BLOOD COUNT 19.6 K/UL (4.8-10.8)
[2020-03-08 08:00] VITALS: BP 123/76
[2020-03-08 08:34] LABS: ANION GAP 13 mmol/L (5-15); BLOOD UREA NITROGEN 8 mg/dL (7-18); CARBON DIOXIDE 25 MMOL/L (21-32); CHLORIDE 110 MMOL/L (98-107); CREATININE 0.4 MG/DL (0.55-1.30); POTASSIUM 4.4 MMOL/L (3.5-5.1); SODIUM 147 MMOL/L (136-145)
[2020-03-08] MEDS: Magnesium Oxide 400mg tab ORAL SCH (09:38)
[2020-03-08] MEDS: Ascorbic Acid 500mg tab GT SCH (09:38)
--- NOTE | 2020-03-08 09:46 | NUR ---
DISCHARGE PLANNING SPOKE WITH RICHA AT [facility] PATIENTS RETURNING TO [facility] REQUIRE 2 NEGATIVE COVID 19 TEST MESSAGE LEFT FOR DR DEL RIO REGARDING SECOND TEST NEEDED Addendum: 03/08/20 at 1556 by YUNI WOODS LVN LVN FAXED CLINICALS TO [facility] T: [phone] INCLUDED COVID RESULTS FROM [facility]
[2020-03-08 12:00] VITALS: BP 117/69
--- NOTE | 2020-03-08 12:34 | NUR ---
NURSE NOTES: Covid swab done, sent to lab.
[2020-03-08] MEDS: Vancomycin 500mg/D5W 110ml IVPB SCH ×2 (12:49)
--- NOTE | 2020-03-08 14:38 | General Progress Note ---
Assessment/Plan Problem List: (1) Bacteremia ICD Codes: R78.81 - Bacteremia SNOMED: 2481812 (2) Sepsis ICD Codes: A41.9 - Sepsis, unspecified organism SNOMED: 04495862 (3) SVT (supraventricular tachycardia) ICD Codes: I47.1 - Supraventricular tachycardia SNOMED: 5194519 (4) Progressive supranuclear palsy ICD Codes: G23.1 - Progressive supranuclear ophthalmoplegia [Efrain-Corona- Cindi] SNOMED: 384368355 (5) Pneumonia ICD Codes: J18.9 - Pneumonia, unspecified organism SNOMED: 127451357 Status: stable, progressing Assessment/Plan: iv abx follow up cultures- +from [facility] echo neg for veg. gt feeds resp care suctioning as needed monitor labs poc d/w dtr cesar x 10 min Subjective ROS Limited/Unobtainable: Yes Constitutional: Reports: malaise, weakness HEENT: Reports: no symptoms Cardiovascular: Reports: no symptoms Respiratory: Reports: cough, shortness of breath, sputum Gastrointestinal/Abdominal: Reports: difficulty swallowing Genitourinary: Reports: no symptoms Neurologic/Psychiatric: Reports: pre-existing deficit Endocrine: Reports: no symptoms Hematologic/Lymphatic: Reports: no symptoms Allergies: Coded Allergies: NO KNOWN ALLERGIES (Verified Allergy, Unknown, 03/04/20) All Systems: reviewed and negative except above Subjective no events. nonverbal. mild congestion. +blood cultures from [facility]. on tube feeds. remains withdrawn and poorly responsive. covid neg x 1 from [facility]. [place] [facility] [place] Last 24 Hour Vital Signs Date Time Temp Pulse Resp B/P (MAP) Pulse Ox O2 Delivery O2 Flow Rate FiO2 03/08/20 12:00 98.2 63 21 117/69 (85) 97 03/08/20 09:00 Nasal Cannula 2.0 03/08/20 08:00 97.9 77 20 123/76 (92) 97 03/08/20 08:00 91 03/08/20 04:00 86 03/08/20 04:00 98.8 100 18 109/66 (80) 97 03/08/20 00:00 97.7 107 18 103/62 (76) 97 03/08/20 00:00 85 03/07/20 21:00 Nasal Cannula 2.0 03/07/20 20:00 97.7 101 18 100/61 (74) 98 03/07/20 20:00 88 03/07/20 16:00 89 03/07/20 16:00 97.7 96 21 130/72 (91) 97 Intake and Output 03/07/20 03/08/20 19:00 07:00 Output Total 1200 ml 700 ml Balance -1200 ml -700 ml Output Urine Total 1200 ml 700 ml Laboratory Tests 03/08/20 07:14: White Blood Count 19.6#H, Red Blood Count 3.73L, Hemoglobin 11.5L, Hematocrit 34.5L, Mean Corpuscular Volume 93, Mean Corpuscular Hemoglobin 30.9, Mean Corpuscular Hemoglobin Concent 33.3, Red Cell Distribution Width 12.5, Platelet Count 324, Mean Platelet Volume 6.0L, Neutrophils (%) (Auto) , Lymphocytes (%) ( Auto) , Monocytes (%) (Auto) , Eosinophils (%) (Auto) , Basophils (%) (Auto) , Differential Total Cells Counted 100, Neutrophils % (Manual) 40L, Lymphocytes % (Manual) 53H, Monocytes % (Manual) 5, Eosinophils % (Manual) 2, Basophils % ( Manual) 0, Band Neutrophils 0, Platelet Estimate Adequate, Platelet Morphology Normal, Red Blood Cell Morphology Normal, Sodium Level 147H, Potassium Level 4.4 #, Chloride Level 110H, Carbon Dioxide Level 25, Anion Gap 13, Blood Urea Nitrogen 8, Creatinine 0.4L, Estimat Glomerular Filtration Rate > 60, Glucose Level 184H, Calcium Level 9.0, Magnesium Level 2.2, Pro-B-Type Natriuretic Peptide 354H 03/08/20 11:55: Vancomycin Level Trough 2.4L Height (Feet): 5 Height (Inches): 4.00 Weight (Pounds): 117 Objective General Appearance: WD/WN, confused EENT: normal ENT inspection Neck: non-tender, normal alignment, supple Cardiovascular: normal peripheral pulses, normal rate, regular rhythm Respiratory/Chest: chest wall non-tender, lungs clear, normal breath sounds, no respiratory distress, no accessory muscle use Abdomen: normal bowel sounds, non tender, soft, no organomegaly, no mass Edema: no edema noted Arm (L), no edema noted Arm (R), no edema noted Leg (L), no edema noted Leg (R), no edema noted Pedal (L), no edema noted Pedal (R), no edema noted Generalized Neurologic: disoriented, unresponsive Skin: normal pigmentation Rick Mcgowan MD March 08, 2020 14:38
--- NOTE | 2020-03-08 14:48 | Infectious Diseases Prog Note ---
Assessment/Plan Assessment/Plan A 1. Likely aspiration pneumonia. rule out of COVID-19 2. Positive blood cultures with Staph species. 3. Hypertension. 4. Status post G-tube placement. 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 Pressure ulcers P 1. Continue IV vancomycin and Zosyn. 2. COVID-19 testing pending 3. continue isolation. 4. Obtain blood culture report from [place] 5. Case was D/W nurse Subjective ROS Limited/Unobtainable: Yes Constitutional: Denies: fever Allergies: Coded Allergies: NO KNOWN ALLERGIES (Verified Allergy, Unknown, 03/04/20) Objective Vital Signs Last 24 Hour Vital Signs Date Time Temp Pulse Resp B/P (MAP) Pulse Ox O2 Delivery O2 Flow Rate FiO2 03/08/20 12:00 98.2 63 21 117/69 (85) 97 03/08/20 09:00 Nasal Cannula 2.0 03/08/20 08:00 97.9 77 20 123/76 (92) 97 03/08/20 08:00 91 03/08/20 04:00 86 03/08/20 04:00 98.8 100 18 109/66 (80) 97 03/08/20 00:00 97.7 107 18 103/62 (76) 97 03/08/20 00:00 85 03/07/20 21:00 Nasal Cannula 2.0 03/07/20 20:00 97.7 101 18 100/61 (74) 98 03/07/20 20:00 88 03/07/20 16:00 89 03/07/20 16:00 97.7 96 21 130/72 (91) 97 Height (Feet): 5 Height (Inches): 4.00 Weight (Pounds): 117 HEENT: mucous membranes moist Respiratory/Chest: other - oxygen by nasal cannula Cardiovascular: normal rate Abdomen: soft, non tender, other - GT feeding Skin: ulcers, other - sacral Neurologic/Psychiatric: aphasia Microbiology Date/Time Source Procedure Growth Status 03/06/20 13:20 Nasopharynx Coronavirus COVID-19 PCR (ARELY) - Final Complete Laboratory Tests Test 03/08/20 07:14 03/08/20 11:55 White Blood Count 19.6 K/UL (4.8-10.8) #H Red Blood Count 3.73 M/UL (4.20-5.40) L Hemoglobin 11.5 G/DL (12.0-16.0) L Hematocrit 34.5 % (37.0-47.0) L Mean Corpuscular Volume 93 FL (80-99) Mean Corpuscular Hemoglobin 30.9 PG (27.0-31.0) Mean Corpuscular Hemoglobin Concent 33.3 G/DL (32.0-36.0) Red Cell Distribution Width 12.5 % (11.6-14.8) Platelet Count 324 K/UL (150-450) Mean Platelet Volume 6.0 FL (6.5-10.1) L Neutrophils (%) (Auto) % (45.0-75.0) Lymphocytes (%) (Auto) % (20.0-45.0) Monocytes (%) (Auto) % (1.0-10.0) Eosinophils (%) (Auto) % (0.0-3.0) Basophils (%) (Auto) % (0.0-2.0) Differential Total Cells Counted 100 Neutrophils % (Manual) 40 % (45-75) L Lymphocytes % (Manual) 53 % (20-45) H Monocytes % (Manual) 5 % (1-10) Eosinophils % (Manual) 2 % (0-3) Basophils % (Manual) 0 % (0-2) Band Neutrophils 0 % (0-8) Platelet Estimate Adequate Platelet Morphology Normal Red Blood Cell Morphology Normal Sodium Level 147 MMOL/L (136-145) H Potassium Level 4.4 MMOL/L (3.5-5.1) # Chloride Level 110 MMOL/L (98-107) H Carbon Dioxide Level 25 MMOL/L (21-32) Anion Gap 13 mmol/L (5-15) Blood Urea Nitrogen 8 mg/dL (7-18) Creatinine 0.4 MG/DL (0.55-1.30) L Estimat Glomerular Filtration Rate > 60 mL/min (>60) Glucose Level 184 MG/DL (74-106) H Calcium Level 9.0 MG/DL (8.5-10.1) Magnesium Level 2.2 MG/DL (1.8-2.4) Pro-B-Type Natriuretic Peptide 354 pg/mL (0-125) H Vancomycin Level Trough 2.4 ug/mL (5.0-12.0) L Current Medications Medications (Trade) Dose Ordered Sig/Monik Route PRN Reason Start Time Stop Time Status Last Admin Dose Admin Acetaminophen (Tylenol) 650 mg Q4H PRN GT Mild Pain (Pain Scale 1-3) 03/05/20 07:15 04/04/20 07:14 Albuterol/ Ipratropium (Albuterol/ Ipratropium) 3 ml Q4H PRN HHN Shortness of Breath 03/06/20 07:30 03/11/20 07:29 Ascorbic Acid (Vitamin C) 250 mg DAILY GT 03/07/20 09:00 04/06/20 08:59 03/08/20 09:38 Dextrose 1,000 ml @ 50 mls/hr Q20H IV 03/05/20 15:45 04/04/20 15:44 03/08/20 04:04 Guaifenesin/ Dextromethorphan (Robitussin DM Syrup) 5 ml Q4H PRN ORAL CONGESTION 03/05/20 07:15 06/03/20 07:14 Heparin Sodium (Porcine) (Heparin 5000 units/ml) 5,000 units EVERY 8 HOURS SUBQ 03/05/20 14:00 04/19/20 13:59 03/08/20 13:48 Magnesium Oxide (Mag-Ox 400mg) 200 mg DAILY ORAL 03/05/20 09:00 04/04/20 08:59 03/08/20 09:38 Piperacillin Sod/ Tazobactam Sod 3.375 gm/Sodium Chloride 110 ml @ 27.5 mls/hr EVERY 8 HOURS IVPB 03/05/20 14:00 03/10/20 13:59 03/08/20 13:46 Vancomycin HCl (Vanco rx to dose) 1 ea DAILY PRN MISC Per rx protocol 03/05/20 07:15 04/04/20 07:14 Vancomycin HCl 750 mg/Sodium Chloride 275 ml @ 183.333 mls/hr Q12H IVPB 03/09/20 01:00 03/14/20 00:59 Gm Ashford MD March 08, 2020 14:48
[2020-03-08 16:00] VITALS: BP 146/74
--- NOTE | 2020-03-08 16:13 | NUR ---
NURSE NOTES: Blood culture with growth of staph. capitis relayed to Dr Russ Ashford, with orders to DC Vancomycin.
--- NOTE | 2020-03-08 18:04 | Surgery Progress Note ---
Surgery Progress Note Subjective Additional Comments no acute events resting comfortable no complaints Objective Last 24 Hour Vital Signs Date Time Temp Pulse Resp B/P (MAP) Pulse Ox O2 Delivery O2 Flow Rate FiO2 03/08/20 16:00 97.9 82 19 146/74 (98) 97 03/08/20 12:00 92 03/08/20 12:00 98.2 63 21 117/69 (85) 97 03/08/20 09:00 Nasal Cannula 2.0 03/08/20 08:00 97.9 77 20 123/76 (92) 97 03/08/20 08:00 91 03/08/20 04:00 86 03/08/20 04:00 98.8 100 18 109/66 (80) 97 03/08/20 00:00 97.7 107 18 103/62 (76) 97 03/08/20 00:00 85 03/07/20 21:00 Nasal Cannula 2.0 03/07/20 20:00 97.7 101 18 100/61 (74) 98 03/07/20 20:00 88 I&O Intake and Output 03/07/20 03/08/20 19:00 07:00 Output Total 1200 ml 700 ml Balance -1200 ml -700 ml Output Urine Total 1200 ml 700 ml Dressing: other Wound: other Drains: other Cardiovascular: RSR Respiratory: decreased breath sounds Abdomen: soft, non-tender, present bowel sounds Extremities: no cyanosis, other Laboratory Tests Test 03/08/20 07:14 03/08/20 11:55 White Blood Count 19.6 K/UL (4.8-10.8) #H Red Blood Count 3.73 M/UL (4.20-5.40) L Hemoglobin 11.5 G/DL (12.0-16.0) L Hematocrit 34.5 % (37.0-47.0) L Mean Corpuscular Volume 93 FL (80-99) Mean Corpuscular Hemoglobin 30.9 PG (27.0-31.0) Mean Corpuscular Hemoglobin Concent 33.3 G/DL (32.0-36.0) Red Cell Distribution Width 12.5 % (11.6-14.8) Platelet Count 324 K/UL (150-450) Mean Platelet Volume 6.0 FL (6.5-10.1) L Neutrophils (%) (Auto) % (45.0-75.0) Lymphocytes (%) (Auto) % (20.0-45.0) Monocytes (%) (Auto) % (1.0-10.0) Eosinophils (%) (Auto) % (0.0-3.0) Basophils (%) (Auto) % (0.0-2.0) Differential Total Cells Counted 100 Neutrophils % (Manual) 40 % (45-75) L Lymphocytes % (Manual) 53 % (20-45) H Monocytes % (Manual) 5 % (1-10) Eosinophils % (Manual) 2 % (0-3) Basophils % (Manual) 0 % (0-2) Band Neutrophils 0 % (0-8) Platelet Estimate Adequate Platelet Morphology Normal Red Blood Cell Morphology Normal Sodium Level 147 MMOL/L (136-145) H Potassium Level 4.4 MMOL/L (3.5-5.1) # Chloride Level 110 MMOL/L (98-107) H Carbon Dioxide Level 25 MMOL/L (21-32) Anion Gap 13 mmol/L (5-15) Blood Urea Nitrogen 8 mg/dL (7-18) Creatinine 0.4 MG/DL (0.55-1.30) L Estimat Glomerular Filtration Rate > 60 mL/min (>60) Glucose Level 184 MG/DL (74-106) H Calcium Level 9.0 MG/DL (8.5-10.1) Magnesium Level 2.2 MG/DL (1.8-2.4) Pro-B-Type Natriuretic Peptide 354 pg/mL (0-125) H Vancomycin Level Trough 2.4 ug/mL (5.0-12.0) L Plan Problems: (1) Bacteremia (2) SVT (supraventricular tachycardia) (3) Sepsis Assessment & Plan: afebrile, HD stable leukocytosis pna cxr noted large DTI sacrum micro noted UA noted cont abx as per ID trend labs no acute surgical intervention planned (4) Pneumonia Assessment & Plan: Reticular interstitial disease and some dense consolidation is seen at the right lung base. There is dense consolidation in the retrocardiac region. The pleural spaces are clear. The heart size is normal. The aorta is calcified. The upper lungs are clear. A band of atelectasis versus thickening of the minor fissure is seen in the right midlung Impression: Bilateral infiltrates, likely pneumonia. Right midlung atelectasis (5) Progressive supranuclear palsy (6) Malnutrition Assessment & Plan: DAILY ESTIMATED NEEDS: Needs based on Wound, cardiac/ 47kg 25-30 kcals/kg 7394-8114 total kcals 1.25-1.5 g protein/kg 58-70 g total protein 25-30 mL/kg 2042-4938 total fluid mLs NUTRITION DIAGNOSIS: * Swallowing difficulty R/T dysphagia as evidenced by pt is PEG dep. * Increased kcal/prot needs R/T wound healing as evidenced by pt is PEG dep. CURRENT TF:Jevity 1.2 @ 30ml/hr x 24 hrs ENTERAL NUTRITION RECOMMENDATIONS: Jevity 1.2 @ 45ml/hr x 24 hrs to provide 1080ml, 1296kcal, 60g prot, 871ml free water * Increase goal rate to 45ml/hr x 24 hrs to meet 100% est kcal/prot needs * HOB over 30 degrees * Without IVF, water flush of 150ml q 8 hrs ADDITIONAL RECOMMENDATIONS: * Calibrated bedscale wt- w/ added P200 mattress + pump Per SNF: [id number] as of 03/04/20 * Monitor lytes, replete as needed * Wound healing: add Vit C 250mg QD + Kendell 1pkt BID * Monitor BGs w/ TF, need for NISS (7) Deep tissue injury Assessment & Plan: patient noted to have large DTI sacrum on admission, erythema, no drainage, no foul odor, developing deep tissue injury with high risk of breakdown worsening given patients overall condition. noted areas of epidermal skin loss in the superior right and lower left. measurements noted in chart. no signs of active infection Tx Plan: Apply skin protectant to sacral area and buttock, cover with optifoam dressing q3 days and prn saturation off load heels with pillow heel protectors monitor for incontinence and care accordingly turn q2h air loss mattress nutritional optimization will follow with recs thank you Josh Duff March 08, 2020 18:04
--- NOTE | 2020-03-08 19:14 | NUR ---
HAND-OFF: Report given to Sofia ZAVALA.
[2020-03-08 20:00] VITALS: BP 140/70
--- NOTE | 2020-03-08 20:07 | NUR ---
NURSE NOTES: Received report from SALLY Kumar. Patient is awake, alert and oriented x 0, non verbal. ekg monitor is in placed, shows sinus rhythm with no chest pain or any discomfort noted at this time. Patient has g-tube, on Jevity 1.2 @ 30 cc/hour, flushing of 100 cc every 6 hours. Patient is connected to nasal cannula @ 3Lpm, saturating 95% without shortness of breath reported. Patient has pressure ulcer on sacral region unsteagable and DTI of both heals. Safety measures are in placed. Bed in low and locked position, bed alarm is on, side rails up x 2. Will continue plan of care.
[2020-03-09] VITALS: BP 131/75
[2020-03-09] MEDS ORDERED: Vancomycin 750mg/NS 275ml IVPB SCH ×2 (01:00)
[2020-03-09] MEDS ORDERED: Acetaminophen 650mg/20.3ml GT PRN (02:00)
[2020-03-09] MEDS ORDERED: Guaifenesin/DM 10ml syrup ORAL PRN (02:00)
[2020-03-09] MEDS ORDERED: Albuterol/Ipratropium 3ml neb HHN PRN (02:00)
--- NOTE | 2020-03-09 02:14 | Progress Note ---
DATE: 03/08/2020 CARDIOLOGY PROGRESS NOTE SUBJECTIVE: The patient had an echocardiogram performed that I reviewed. There was low likelihood of any vegetations or endocarditis based on echocardiographic criteria. Ejection fraction was normal. The patient remains withdrawn, slightly more alert. PHYSICAL EXAMINATION: VITAL SIGNS: Afebrile, blood pressure 117/69, heart rate 63, respirations 21. Monitored rhythm sinus. LUNGS: Bilateral breath sounds. No wheezing. CARDIAC: Regular rhythm and rate. Normal S1, S2. ABDOMEN: Soft with G-tube. EXTREMITIES: No edema. LABORATORY DATA: White count 19.6, hemoglobin 11.5. Sodium 147, potassium 4.4, bicarb 25, BUN 8, creatinine 0.4. Pro natriuretic peptide 354. IMPRESSION: 1. Dehydration. 2. Hypernatremia. 3. Aspiration pneumonia. 4. Staph aureus bacteremia. 5. Increased risk for endocarditis, but low likelihood based on current echocardiographic data. 6. Hypokalemia, replaced. 7. Sinus tachycardia, resolved. 8. Supraventricular tachycardia, suppressed. PLAN: 1. Hypotonic IV fluids. 2. No diuresis. 3. Antimicrobials. 4. Consider transesophageal echocardiogram if surveillance blood cultures remained positive. 5. Discontinue telemetry. Justin Latif M.D. DR: CONG JOB#: [id number] CC:
--- NOTE | 2020-03-09 02:35 | NUR ---
TRANSFER TO FLOOR: Patient transferred to 4E, per bed to room 416-1 via covid protocol. Report given to SALLY Padilla. Belongings and medications given to receiving RN. Patient is in stable condition, no respiratory distress noted at this time. Plan of care endorsed.
--- NOTE | 2020-03-09 03:26 | NUR ---
NURSE NOTES: Received patient awake, non-verbal, no SOB, no belongings, tolerating her g-tube feeding well. Wounds cleansed, pictures taken, dressings changed.
[2020-03-09 04:00] VITALS: BP 121/82
[2020-03-09] MEDS ORDERED: Heparin 5000 units/ml inj SUBQ SCH (06:00)
[2020-03-09] MEDS ORDERED: Piperacillin/Tazobactam 3.375 GM in NS 110 ML IVPB SCH (06:00)
--- NOTE | 2020-03-09 07:22 | NUR ---
HAND-OFF: Report given to Zaida Vicente RN.
--- NOTE | 2020-03-09 07:37 | NUR ---
NURSE NOTES: Patient awake, non-verbal; on Nasal Cannula, no sing of distress and shortness of breath; no sing of chest pain; Cornelius in place, drains yellow urine; IV Right and Left Hand, D5W running; side rials up x2, breaks engaged, bed at lowest position, bed alarm on; G-Tube in place, [place] 1.2 running at 30cc, no residual, head of the bed elevated; call light within reach; will keep monitoring.
[2020-03-09 08:00] VITALS: BP 106/86
[2020-03-09 08:33] LABS: BASOPHILS % (AUTO) 1.1 % (0.0-2.0); EOSINOPHILS % (AUTO) 2.5 % (0.0-3.0); HEMATOCRIT 30.4 % (37.0-47.0); HEMOGLOBIN 10.4 G/DL (12.0-16.0); LYMPHOCYTES % (AUTO) 21.5 % (20.0-45.0); MEAN CORPUSCULAR VOLUME 90 FL (80-99); MONOCYTES % (AUTO) 7.3 % (1.0-10.0); NEUTROPHILS % (AUTO) 67.6 % (45.0-75.0); PLATELET COUNT 254 K/UL (150-450); RED BLOOD COUNT 3.39 M/UL (4.20-5.40); RED CELL DISTRIBUTION WIDTH 12.2 % (11.6-14.8); WHITE BLOOD COUNT 6.3 K/UL (4.8-10.8)
[2020-03-09 08:54] LABS: ALANINE AMINOTRANSFERASE 34 U/L (12-78); ALBUMIN 2.2 G/DL (3.4-5.0); ALBUMIN/GLOBULIN RATIO 0.5 (1.0-2.7); ALKALINE PHOSPHATASE 75 U/L (46-116); ANION GAP 8 mmol/L (5-15); ASPARTATE AMINO TRANSFERASE 24 U/L (15-37); BILIRUBIN,TOTAL 0.5 MG/DL (0.2-1.0); BLOOD UREA NITROGEN 8 mg/dL (7-18); CALCIUM 8.8 MG/DL (8.5-10.1); CARBON DIOXIDE 27 MMOL/L (21-32); CHLORIDE 109 MMOL/L (98-107); CREATININE 0.3 MG/DL (0.55-1.30); POTASSIUM 3.3 MMOL/L (3.5-5.1); SODIUM 144 MMOL/L (136-145)
[2020-03-09] MEDS ORDERED: Ascorbic Acid 500mg tab GT SCH (09:00)
--- NOTE | 2020-03-09 09:32 | NUR ---
NURSE NOTES: Per MD Joaquin, keep isolation precautions, waiting for second COVID swab result.
--- NOTE | 2020-03-09 09:54 | NUR ---
DISCHARGE PLANNING FOLLOW UP WITH CATHI AT [facility]. PER CATHI, PATIENT ACCEPTED TO RETURN WITH BED ASSIGNMENT 212-[address] DEL RIO INFORMED THAT PATIENT MAY RETURN TO SNF. GAVE DC ORDER. NOTED AND CARRIED OUT. Addendum: 03/09/20 at 1026 by MICHELLE TSE, VAUGHN MENDES DR CARLISLE INFORMED PATIENT HAD COVID-19 PCR AT [facility] ON 03/04/20 PRIOR TO ADMISSION TO [facility] WITH NEGATIVE RESULT. S AMBULANCE TRANSPORTATION SCHEDULED WITH [facility] EXT [id number] WITH ETA @ 1200 PM PER GABBY
--- NOTE | 2020-03-09 10:57 | Infectious Diseases Prog Note ---
Assessment/Plan Assessment/Plan antibiotics : zosyn A 1. Likely aspiration pneumonia. COVID-19 test negative x 2 2. Positive blood cultures with Staph species. 3. Hypertension. 4. Status post G-tube placement. 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 leucocytosis resolved P 1. d/c Zosyn. 2. d/c isolation. 3. will follow up cultures Subjective ROS Limited/Unobtainable: Yes Allergies: Coded Allergies: NO KNOWN ALLERGIES (Verified Allergy, Unknown, 03/04/20) Objective Vital Signs Last 24 Hour Vital Signs Date Time Temp Pulse Resp B/P (MAP) Pulse Ox O2 Delivery O2 Flow Rate FiO2 03/09/20 09:00 Nasal Cannula 2.0 03/09/20 08:00 98.1 100 19 106/86 (93) 98 03/09/20 06:34 87 16 97 Nasal Cannula 2.0 28 03/09/20 06:34 97 Nasal Cannula 2.0 28 03/09/20 04:00 97.0 96 20 121/82 (95) 100 03/09/20 00:00 97.9 79 19 131/75 (93) 100 03/08/20 21:00 Nasal Cannula 2.0 03/08/20 20:00 98.1 82 19 140/70 (93) 98 03/08/20 16:00 97.9 82 19 146/74 (98) 97 03/08/20 12:00 92 03/08/20 12:00 98.2 63 21 117/69 (85) 97 Height (Feet): 5 Height (Inches): 4.00 Weight (Pounds): 117 Respiratory/Chest: lungs clear Cardiovascular: normal rate, regular rhythm, no gallop/murmur Abdomen: soft, non tender Extremities: no edema Microbiology Date/Time Source Procedure Growth Status 03/06/20 13:20 Nasopharynx Coronavirus COVID-19 PCR (ARELY) - Final Complete Laboratory Tests Test 03/08/20 11:55 03/09/20 08:05 Vancomycin Level Trough 2.4 ug/mL (5.0-12.0) L White Blood Count 6.3 K/UL (4.8-10.8) # Red Blood Count 3.39 M/UL (4.20-5.40) L Hemoglobin 10.4 G/DL (12.0-16.0) L Hematocrit 30.4 % (37.0-47.0) L Mean Corpuscular Volume 90 FL (80-99) Mean Corpuscular Hemoglobin 30.6 PG (27.0-31.0) Mean Corpuscular Hemoglobin Concent 34.1 G/DL (32.0-36.0) Red Cell Distribution Width 12.2 % (11.6-14.8) Platelet Count 254 K/UL (150-450) Mean Platelet Volume 6.0 FL (6.5-10.1) L Neutrophils (%) (Auto) 67.6 % (45.0-75.0) Lymphocytes (%) (Auto) 21.5 % (20.0-45.0) Monocytes (%) (Auto) 7.3 % (1.0-10.0) Eosinophils (%) (Auto) 2.5 % (0.0-3.0) Basophils (%) (Auto) 1.1 % (0.0-2.0) Sodium Level 144 MMOL/L (136-145) Potassium Level 3.3 MMOL/L (3.5-5.1) L Chloride Level 109 MMOL/L (98-107) H Carbon Dioxide Level 27 MMOL/L (21-32) Anion Gap 8 mmol/L (5-15) Blood Urea Nitrogen 8 mg/dL (7-18) Creatinine 0.3 MG/DL (0.55-1.30) L Estimat Glomerular Filtration Rate > 60 mL/min (>60) Glucose Level 137 MG/DL (74-106) H Calcium Level 8.8 MG/DL (8.5-10.1) Total Bilirubin 0.5 MG/DL (0.2-1.0) Aspartate Amino Transf (AST/SGOT) 24 U/L (15-37) Alanine Aminotransferase (ALT/SGPT) 34 U/L (12-78) Alkaline Phosphatase 75 U/L (46-116) Total Protein 6.3 G/DL (6.4-8.2) L Albumin 2.2 G/DL (3.4-5.0) L Globulin 4.1 g/dL Albumin/Globulin Ratio 0.5 (1.0-2.7) L Current Medications Medications (Trade) Dose Ordered Sig/Monik Route PRN Reason Start Time Stop Time Status Last Admin Dose Admin Acetaminophen (Tylenol) 650 mg Q4H PRN GT Mild Pain (Pain Scale 1-3) 03/09/20 02:00 04/04/20 01:59 Albuterol/ Ipratropium (Albuterol/ Ipratropium) 3 ml Q4H PRN HHN Shortness of Breath 03/09/20 02:00 03/11/20 01:59 Ascorbic Acid (Vitamin C) 250 mg DAILY GT 03/09/20 09:00 04/06/20 08:59 03/09/20 08:42 Dextrose 1,000 ml @ 100 mls/hr Q10H IV 03/09/20 01:45 04/07/20 22:59 03/09/20 02:50 Guaifenesin/ Dextromethorphan (Robitussin DM Syrup) 5 ml Q4H PRN ORAL CONGESTION 03/09/20 02:00 06/03/20 01:59 Heparin Sodium (Porcine) (Heparin 5000 units/ml) 5,000 units EVERY 8 HOURS SUBQ 03/09/20 06:00 04/19/20 13:59 03/09/20 05:25 Piperacillin Sod/ Tazobactam Sod 3.375 gm/Sodium Chloride 110 ml @ 27.5 mls/hr EVERY 8 HOURS IVPB 03/09/20 06:00 03/10/20 13:59 03/09/20 05:24 Jillian Joaquin MD March 09, 2020 10:56
--- NOTE | 2020-03-09 11:55 | NUR ---
NURSE NOTES: I communicated MD Mcgowan to keep and DC Cornelius upon discharge; waiting for order.
--- NOTE | 2020-03-09 12:10 | NUR ---
NURSE NOTES: I received an order to keep Cornelius upon discharge; order carried out as order given;
--- NOTE | 2020-03-09 12:33 | NUR ---
RADIOLOGY DEPT., CHEST X-RAY DONE.-P.DYE
--- NOTE | 2020-03-09 12:53 | NUR ---
RD ASSESSMENT & RECOMMENDATIONS SEE CARE ACTIVITY FOR COMPLETE ASSESSMENT DAILY ESTIMATED NEEDS: Needs based on Wound, cardiac/ 47kg 25-30 kcals/kg 5300-1579 total kcals 1.25-1.5 g protein/kg 58-70 g total protein 25-30 mL/kg 0558-8185 total fluid mLs NUTRITION DIAGNOSIS: * Swallowing difficulty R/T dysphagia as evidenced by pt is PEG dep. * Increased kcal/prot needs R/T wound healing as evidenced by admitted w/ sacral wound, refer to WC eval. CURRENT TF:Jevity 1.2 @ 30ml/hr x 24 hrs ENTERAL NUTRITION RECOMMENDATIONS: Jevity 1.2 @ 45ml/hr x 24 hrs to provide 1080ml, 1296kcal, 60g prot, 871ml free water * Increase goal rate to 45ml/hr x 24 hrs to meet 100% est kcal/prot needs * HOB over 30 degrees * Without IVF, water flush of 150ml q 8 hrs ---- With elevated BG, rec Glucerna 1.5 @35ml/hr (x24 hrs, 840ml, 1260 kcal, 69g pro) to meet est kcal and pro needs and for gylcemic control. ADDITIONAL RECOMMENDATIONS: * Calibrated bedscale wt- w/ added P200 mattress + pump Per SNF: [id number] as of 03/04/20 * Monitor lytes, replete as needed * Wound healing: add Vit C 250mg QD + Kendell 1pkt BID * Monitor BGs w/ TF, need for NISS and/or TF change
--- NOTE | 2020-03-09 13:14 | Diagnostic Imaging Report ---
Indication: Cough Technique: One view of the chest Comparison: 03/06/2020 Findings: Less optimal inspiration currently, particularly on the right. Allowing for differences in degree of inspiration, probably unchanged right basilar and perihilar infiltrate. Retrocardiac infiltrate on the left appears somewhat improved. The heart size is normal. The pleural spaces are clear. Impression: Improved left basilar infiltrate, unchanged right basilar infiltrate, over 3 days
--- NOTE | 2020-03-09 13:30 | NUR ---
NURSE NOTES: Patient discharged to [facility]; telephone report given to SALLY Ramírez ammunition supervisor; per MD Juan M Cornelius kept upon discharge; IV access and name tag removed; wound care provided and pictures uploaded on file; printed material given to ambulance personnel; family Fina Tiwari notified of patient's discharge; G-Tube dressing charged; patine was stable upon discharge;
--- NOTE | 2020-03-09 14:30 | Surgery Progress Note ---
Surgery Progress Note Subjective Symptoms: improved, tolerating diet, passing flatus Objective Last 24 Hour Vital Signs Date Time Temp Pulse Resp B/P (MAP) Pulse Ox O2 Delivery O2 Flow Rate FiO2 03/09/20 09:00 Nasal Cannula 2.0 03/09/20 08:00 98.1 100 19 106/86 (93) 98 03/09/20 06:34 87 16 97 Nasal Cannula 2.0 28 03/09/20 06:34 97 Nasal Cannula 2.0 28 03/09/20 04:00 97.0 96 20 121/82 (95) 100 03/09/20 00:00 97.9 79 19 131/75 (93) 100 03/08/20 21:00 Nasal Cannula 2.0 03/08/20 20:00 98.1 82 19 140/70 (93) 98 03/08/20 16:00 97.9 82 19 146/74 (98) 97 I&O Intake and Output 03/08/20 03/09/20 19:00 07:00 Intake Total 30 ml 837.5 ml Output Total 800 ml Balance -770 ml 837.5 ml Intake Free Water 200 ml IV Total 277.5 ml Tube Feeding 30 ml 360 ml Output Urine Total 800 ml Dressing: dry Wound: clean Cardiovascular: RSR Respiratory: clear Abdomen: soft, non-tender, present bowel sounds Extremities: no edema, no tenderness, no cyanosis Laboratory Tests Test 03/09/20 08:05 White Blood Count 6.3 K/UL (4.8-10.8) # Red Blood Count 3.39 M/UL (4.20-5.40) L Hemoglobin 10.4 G/DL (12.0-16.0) L Hematocrit 30.4 % (37.0-47.0) L Mean Corpuscular Volume 90 FL (80-99) Mean Corpuscular Hemoglobin 30.6 PG (27.0-31.0) Mean Corpuscular Hemoglobin Concent 34.1 G/DL (32.0-36.0) Red Cell Distribution Width 12.2 % (11.6-14.8) Platelet Count 254 K/UL (150-450) Mean Platelet Volume 6.0 FL (6.5-10.1) L Neutrophils (%) (Auto) 67.6 % (45.0-75.0) Lymphocytes (%) (Auto) 21.5 % (20.0-45.0) Monocytes (%) (Auto) 7.3 % (1.0-10.0) Eosinophils (%) (Auto) 2.5 % (0.0-3.0) Basophils (%) (Auto) 1.1 % (0.0-2.0) Sodium Level 144 MMOL/L (136-145) Potassium Level 3.3 MMOL/L (3.5-5.1) L Chloride Level 109 MMOL/L (98-107) H Carbon Dioxide Level 27 MMOL/L (21-32) Anion Gap 8 mmol/L (5-15) Blood Urea Nitrogen 8 mg/dL (7-18) Creatinine 0.3 MG/DL (0.55-1.30) L Estimat Glomerular Filtration Rate > 60 mL/min (>60) Glucose Level 137 MG/DL (74-106) H Calcium Level 8.8 MG/DL (8.5-10.1) Total Bilirubin 0.5 MG/DL (0.2-1.0) Aspartate Amino Transf (AST/SGOT) 24 U/L (15-37) Alanine Aminotransferase (ALT/SGPT) 34 U/L (12-78) Alkaline Phosphatase 75 U/L (46-116) Total Protein 6.3 G/DL (6.4-8.2) L Albumin 2.2 G/DL (3.4-5.0) L Globulin 4.1 g/dL Albumin/Globulin Ratio 0.5 (1.0-2.7) L Plan Problems: (1) Bacteremia (2) SVT (supraventricular tachycardia) (3) Sepsis Assessment & Plan: afebrile, HD stable leukocytosis pna cxr noted large DTI sacrum micro noted UA noted cont abx as per ID trend labs no acute surgical intervention planned improved overall d/c planning for today cont care plan for outpatient (4) Pneumonia Assessment & Plan: Reticular interstitial disease and some dense consolidation is seen at the right lung base. There is dense consolidation in the retrocardiac region. The pleural spaces are clear. The heart size is normal. The aorta is calcified. The upper lungs are clear. A band of atelectasis versus thickening of the minor fissure is seen in the right midlung Impression: Bilateral infiltrates, likely pneumonia. Right midlung atelectasis (5) Progressive supranuclear palsy (6) Malnutrition Assessment & Plan: DAILY ESTIMATED NEEDS: Needs based on Wound, cardiac/ 47kg 25-30 kcals/kg 3558-9479 total kcals 1.25-1.5 g protein/kg 58-70 g total protein 25-30 mL/kg 9812-4133 total fluid mLs NUTRITION DIAGNOSIS: * Swallowing difficulty R/T dysphagia as evidenced by pt is PEG dep. * Increased kcal/prot needs R/T wound healing as evidenced by pt is PEG dep. CURRENT TF:Jevity 1.2 @ 30ml/hr x 24 hrs ENTERAL NUTRITION RECOMMENDATIONS: Jevity 1.2 @ 45ml/hr x 24 hrs to provide 1080ml, 1296kcal, 60g prot, 871ml free water * Increase goal rate to 45ml/hr x 24 hrs to meet 100% est kcal/prot needs * HOB over 30 degrees * Without IVF, water flush of 150ml q 8 hrs ADDITIONAL RECOMMENDATIONS: * Calibrated bedscale wt- w/ added P200 mattress + pump Per SNF: [id number] as of 03/04/20 * Monitor lytes, replete as needed * Wound healing: add Vit C 250mg QD + Kendell 1pkt BID * Monitor BGs w/ TF, need for NISS (7) Deep tissue injury Assessment & Plan: patient noted to have large DTI sacrum on admission, erythema, no drainage, no foul odor, developing deep tissue injury with high risk of breakdown worsening given patients overall condition. noted areas of epidermal skin loss in the superior right and lower left. measurements noted in chart. no signs of active infection Tx Plan: Apply skin protectant to sacral area and buttock, cover with optifoam dressing q3 days and prn saturation off load heels with pillow heel protectors monitor for incontinence and care accordingly turn q2h air loss mattress nutritional optimization will follow with recs thank you Josh Duff March 09, 2020 14:30
--- NOTE | 2020-03-09 23:59 | Progress Note ---
DATE: 03/09/2020 CARDIOLOGY PROGRESS NOTE SUBJECTIVE: The patient has no new complaints. She has completed antimicrobial therapy for her pneumonia. She is negative for COVID-19 x2 tests as well. No chest pain. No shortness of breath. No apparent distress. As previously noted, bacteremia has not revealed any signs of endocarditis by echocardiographic criteria. PHYSICAL EXAMINATION: LUNGS: Bilateral breath sounds. No wheezing or rales. CARDIAC: Regular rhythm and rate. Normal S1, S2 with a 1/6 systolic murmur at the apex. ABDOMEN: Soft and nontender. There is a G-tube intact. EXTREMITIES: No edema. IMPRESSION: 1. Aspiration pneumonia, recovered. 2. Sepsis and bacteremia, resolved. 3. Dehydration and hypernatremia, corrected. 4. No signs of endocarditis. 5. Physiologically appropriate sinus tachycardia, recovered. 6. Supraventricular arrhythmias, now suppressed. 7. Severe protein-calorie malnutrition on supplemental nutrition by feeding tube. PLAN: Discharge medication regimen reviewed. [facility] No additional cardiovascular workup planned. Recommend blood cultures for any recurring fever spikes. Justin Latif M.D. DR: DANTE JOB#: [id number] CC:
--- NOTE | 2020-03-10 12:33 | Discharge Summary ---
Discharge Summary Discharge Summary _ DATE OF ADMISSION: 03/04/2020 DATE OF DISCHARGE: 03/09/2020 DISCHARGED BY: Dr. Mcgowan REASON FOR ADMISSION: 80 years old female with past medical history of aspiration pneumonia, dysphagia, feeding by G-tube, hypertension, progressive supranuclear palsy , [facility] with complaints of cough and congestion for several days. At the facility patient started on oral antibiotics and nebulizing treatment, but symptoms got progressively worse. Patient initially presented to [facility]. After initial evaluation she was diagnosed there with aspiration pneumonia. Patient initially was on high flow oxygen , but later was able to be weaned down and transferred to [facility] for continuation of care due to insurance. CONSULTANTS: language therapist Dr.Kattan SCHNEIDER specialist Dr. Joaquin surgery Dr. Duff [facility]: Patient admitted and continued on empiric antibiotic. Supplemental oxygen provided and titrated to keep pulse oximetry above 92%. Pulmonary toilet provided. Patient initially was on isolation . SARS-CoV-2 by PCR on , and repeated on 03/08 was not detected. Isolation was discontinued. Patient had positive blood culture with Staph species from [facility]. Patient was on IV vancomycin along with antibiotic for treatment of pneumonia. Leukocytosis resolved. Follow-up chest x-ray revealed improved left basilar infiltrate and unchanged right basilar infiltrate over 3 days. Antitussive provided as needed. Strict aspiration precaution maintained. Tube feeding formula with goal rate and protein supplements provided as per lead network engineer recommendation. Renal parameters and electrolytes were closely monitored, electrolytes corrected as needed. Nephrotoxic were avoided. Hypotonic IV solution initially was provided. DVT prophylaxis provided. Echocardiogram demonstrated preserved ejection fraction of 65%. No evidence of wall motion abnormality. No evidence of pericardial effusion. Right ventricular systolic pressure of 17. Antihypertensive regimen was continued. No additional cardiovascular work-up was planned. Recommended to obtain blood culture at the facility if any recurrent fever spikes. Patient presented with large deep tissue injury at sacral area. Wound care provided as per surgeon recommendation. Continue wound care at the facility. Patient clinically stabilized and was ready for discharge to [facility] for [facility] of care. 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 DISCHARGE INSTRUCTIONS: Patient was discharged to the [facility] facility. Follow up with medical doctor at the facility. I have been assigned to dictate discharge summary for this account. I was not involved in the patient's management. Nisreen Monique NP March 10, 2020 12:33
== END 2020-03-09 13:20 | DRG 871 ==
LOC: 2E 20:20 → 4E 03-09 01:33
DX: A41.2 Sepsis due to unspecified staphylococcus (principal); J69.0 Pneumonitis due to inhalation of food and vomit; G92 Toxic encephalopathy; G82.50 Quadriplegia, unspecified; E43 Unspecified severe protein-calorie malnutrition; I47.1 Supraventricular tachycardia; E87.0 Hyperosmolality and hypernatremia; G23.1 Progressive supranuclear ophthalmoplegia [Steele-Richardson-Olszewski]; I50.32 Chronic diastolic (congestive) heart failure; Z43.1 Encounter for attention to gastrostomy; Z68.1 Body mass index [BMI] 19.9 or less, adult; L89.156 Pressure-induced deep tissue damage of sacral region; L89.626 Pressure-induced deep tissue damage of left heel; L89.616 Pressure-induced deep tissue damage of right heel; E87.6 Hypokalemia; I11.0 Hypertensive heart disease with heart failure; E86.0 Dehydration; R13.10 Dysphagia, unspecified; Z22.322 Carrier or suspected carrier of Methicillin resistant Staphylococcus aureus
CPT/HCPCS: 36415; 71045; 80048; 80053; 80202; 83735; 83880; 85007; 85025; 87081; 87635; 93306; 94664; J8499